=== PATIENT | male | born 1980 | race Hispanic/Latino ===

== ENCOUNTER 2017-12-27 09:56 | Inpatient (IN) | payer OTHER ==
[~2017-12-27] VITALS: Ht 188 cm; Wt 140.7 kg
[2017-12-27] MEDS ORDERED: ACETAMINOPHEN EXTRA STRENGTH 500 MG TABLET ONE (10:29)
[2017-12-27] MEDS ORDERED: SODIUM CHLORIDE 0.9% 1000ML 1,000 ML IV ONE ×3 (10:29→13:01)
[2017-12-27] MEDS ORDERED: ONDANSETRON HCL 4 MG/2 ML VIAL ONE (10:29)
[2017-12-27 10:33] LABS: BASOPHILS % (AUTO) 0.4 % (0.0-5.0); EOSINOPHILS % (AUTO) 0.3 % (0.0-8.0); HEMATOCRIT 32.1 % (42-54); LYMPHOCYTES % (AUTO) 5.5 % (21.0-51.0); MEAN CORPUSCULAR HEMOGLOBIN 25.6 pg (27.0-33.0); MEAN CORPUSCULAR HGB CONC 32.3 g/dL (32.0-36.0); MEAN CORPUSCULAR VOLUME 79.5 fL (79-99); MONOCYTES % (AUTO) 5.1 % (3.0-13.0); NEUTROPHILS % (AUTO) 88.7 % (40.0-77.0); PLATELET COUNT (AUTO) 289 K/uL (130-400); RED BLOOD CELL COUNT(AUTO) 4.04 MIL/uL (4.50-6.20); RED CELL DISTRIBUTION WIDTH 13.4 % (11.0-15.5); WHITE BLOOD COUNT (AUTO) 16.9 K/uL (4.8-10.8)
[2017-12-27 10:53] LABS: CREATININE 1.2 mg/dL (0.5-1.5); POTASSIUM 3.7 mmol/L (3.5-5.1)
[2017-12-27 10:54] LABS: ALBUMIN 3.1 g/dL (3.5-5.0); BILIRUBIN,TOTAL 1.1 mg/dL (0.2-1.0); TOTAL PROTEIN, SERUM 8.2 g/dL (6.0-8.3)
[2017-12-27 11:35] LABS: APPEARANCE,URINE CLEAR (CLEAR); BILIRUBIN,URINE NEGATIVE (NEGATIVE); COLOR,URINE YELLOW (YELLOW); GLUCOSE, URINE (UA) >=1000 mg/dL (NEGATIVE); KETONES,URINE 15 mg/dL (NEGATIVE); LEUKOCYTE ESTERASE ,URINE NEGATIVE (NEGATIVE); NITRATE,URINE NEGATIVE (NEGATIVE); OCCULT BLOOD,URINE MODERATE (NEGATIVE); PH,URINE 5.5 (5.0-8.0); PROTEIN,URINE 30 (NEGATIVE)
[2017-12-27 11:54] LABS: BACTERIA,URINE None Seen /HPF (None Seen); SQUAMOUS EPITHELIAL CELL,UR Rare /HPF (0-2); WBC,URINE None Seen /HPF (0-1)
[2017-12-27] MEDS ORDERED: IBUPROFEN 600 MG TABLET ONE (12:37)
[2017-12-27] MEDS ORDERED: ZOSYN 3.375GM+NS 50ML 50 ML IV ONE (13:01)
[2017-12-27] MEDS ORDERED: SODIUM CHLORIDE 0.9% 50 ML IV ONE (13:01)
[2017-12-27] MEDS ORDERED: INSULIN HUMULIN R 100 UNIT/ML 3ML ONE (13:02)
[2017-12-27] MEDS ORDERED: MORPHINE SULFATE 2 MG/ML 1ML SYG IV PRN (16:00)
[2017-12-27 18:30] VITALS: BP 135/73
[2017-12-27 20:20] VITALS: BP 162/89
[2017-12-27] MEDS: INSULIN HUMULIN R 100 UNIT/ML 3ML SQ SCH ×2 (21:00→22:41)
[2017-12-27] MEDS: ZOSYN 3.375GM+NS 50ML 50 ML IV SCH (22:14)
[2017-12-27] MEDS: FAMOTIDINE/PF 20 MG/2 ML VIAL IV SCH (22:14)
[2017-12-27] MEDS: APIXABAN 5 MG TABLET PO SCH (22:14)
[2017-12-27] MEDS: SODIUM CHLORIDE 0.9% 1000ML 1,000 ML IV SCH ×2 (22:15→23:49)
[2017-12-27 23:16] VITALS: BP 160/85
[2017-12-27] MEDS: ACETAMINOPHEN 325 MG TAB PO PRN (23:35)
[2017-12-27] MEDS: ONDANSETRON HCL 4 MG/2 ML VIAL IV PRN (23:35)
[2017-12-28] MEDS: ACETAMINOPHEN 325 MG TAB PO PRN ×2 (04:07→15:36)
[2017-12-28 04:12] VITALS: BP 171/97
[2017-12-28] MEDS: ZOSYN 3.375GM+NS 50ML 50 ML IV SCH ×3 (04:33→22:02)
[2017-12-28 04:58] VITALS: BP 143/83
[2017-12-28] MEDS: INSULIN HUMULIN R 100 UNIT/ML 3ML SQ SCH ×4 (06:18→22:14)
[2017-12-28 07:00] VITALS: BP 136/77
[2017-12-28 07:43] LABS: CREATININE 1.1 mg/dL (0.5-1.5); POTASSIUM 3.8 mmol/L (3.5-5.1)
[2017-12-28 07:48] LABS: HEMATOCRIT 26.7 % (42-54); MEAN CORPUSCULAR HEMOGLOBIN 26.1 pg (27.0-33.0); MEAN CORPUSCULAR HGB CONC 32.8 g/dL (32.0-36.0); MEAN CORPUSCULAR VOLUME 79.8 fL (79-99); PLATELET COUNT (AUTO) 268 K/uL (130-400); RED BLOOD CELL COUNT(AUTO) 3.35 MIL/uL (4.50-6.20); RED CELL DISTRIBUTION WIDTH 13.3 % (11.0-15.5)
[2017-12-28] MEDS ORDERED: SODIUM CHLORIDE 0.9% 1000ML 1,000 ML IV SCH (08:48)
[2017-12-28] MEDS ORDERED: ENOXAPARIN SODIUM 40 MG/0.4 ML SYRINGE SQ SCH (09:00)
[2017-12-28] MEDS: FAMOTIDINE/PF 20 MG/2 ML VIAL IV SCH ×2 (09:05→22:02)
[2017-12-28] MEDS: APIXABAN 5 MG TABLET PO SCH ×2 (09:05→22:07)
[2017-12-28] MEDS: SODIUM CHLORIDE 0.9% 1000ML 1,000 ML IV SCH ×2 (09:05→17:30)
[2017-12-28] MEDS: INSULIN GLARGINE 100 UNITS/ML 10 ML VIAL SQ SCH ×2 (09:42→22:15)
[2017-12-28 11:00] VITALS: BP 171/100
[2017-12-28] MEDS: ONDANSETRON HCL 4 MG/2 ML VIAL IV PRN (11:13)
[2017-12-28] MEDS: HYDRALAZINE HCL 20 MG/ML VIAL IV PRN (11:13)
[2017-12-28] MEDS ORDERED: ATOR40TA69 PO (11:24)
[2017-12-28] MEDS ORDERED: GLIM1TAB2 PO (11:24)
[2017-12-28] MEDS ORDERED: SITA100T12 PO (11:24)
[2017-12-28] MEDS ORDERED: LISI-613 PO (11:24)
[2017-12-28] MEDS ORDERED: METF-445 PO (11:24)
[2017-12-28] MEDS ORDERED: VANCOMYCIN PROTOCOL PER PHARMACY IV SCH (13:45)
[2017-12-28] MEDS ORDERED: COMPOUND IV REFRIGERATED 1 EACH IVSOLN MISC PRN (14:00)
[2017-12-28] MEDS: VANCOMYCIN 2 GM in SODIUM CHLORIDE 0.9% 500ML 500 ML IV SCH (14:37)
[2017-12-28 15:35] VITALS: BP 149/81
[2017-12-28 19:25] VITALS: BP 121/83
[2017-12-29] VITALS (7 sets, daily range): BP systolic 134–169; BP diastolic 78–95
[2017-12-29] MEDS: VANCOMYCIN 2 GM in SODIUM CHLORIDE 0.9% 500ML 500 ML IV SCH ×2 (02:55→15:33)
[2017-12-29] MEDS: SODIUM CHLORIDE 0.9% 1000ML 1,000 ML IV SCH ×4 (03:02→23:55)
[2017-12-29 04:49] LABS: HEMATOCRIT 24.7 % (42-54); MEAN CORPUSCULAR HEMOGLOBIN 26.1 pg (27.0-33.0); MEAN CORPUSCULAR HGB CONC 32.8 g/dL (32.0-36.0); MEAN CORPUSCULAR VOLUME 79.5 fL (79-99); PLATELET COUNT (AUTO) 245 K/uL (130-400); RED BLOOD CELL COUNT(AUTO) 3.11 MIL/uL (4.50-6.20); RED CELL DISTRIBUTION WIDTH 13.3 % (11.0-15.5)
[2017-12-29 04:56] LABS: POTASSIUM 3.4 mmol/L (3.5-5.1)
[2017-12-29] MEDS: ZOSYN 3.375GM+NS 50ML 50 ML IV SCH ×3 (05:38→21:40)
[2017-12-29] MEDS: INSULIN GLARGINE 100 UNITS/ML 10 ML VIAL SQ SCH ×2 (08:07→21:52)
[2017-12-29] MEDS: INSULIN HUMULIN R 100 UNIT/ML 3ML SQ SCH ×4 (08:08→21:54)
[2017-12-29] MEDS: FAMOTIDINE/PF 20 MG/2 ML VIAL IV SCH ×2 (08:10→21:43)
[2017-12-29] MEDS: APIXABAN 5 MG TABLET PO SCH ×2 (08:12→21:45)
[2017-12-29] MEDS ORDERED: HONEY 1 APPL/ML TUBE TP SCH (09:00)
[2017-12-29] MEDS ORDERED: LACTULOSE 20 GM/30 ML UDCUP PO PRN (09:15)
[2017-12-29] MEDS: ACETAMINOPHEN 325 MG TAB PO PRN (16:21)
[2017-12-29] MEDS: DOCUSATE SODIUM 100 MG CAP PO SCH (21:45)
[2017-12-29] MEDS: HYDRALAZINE HCL 20 MG/ML VIAL IV PRN (23:59)
[2017-12-30] MEDS: ACETAMINOPHEN 325 MG TAB PO PRN
[2017-12-30] MEDS: VANCOMYCIN 2 GM in SODIUM CHLORIDE 0.9% 500ML 500 ML IV SCH ×3 (02:25→21:14)
[2017-12-30 03:28] VITALS: BP 131/76
[2017-12-30] MEDS: HONEY 1 APPL/ML TUBE TP SCH (04:00)
[2017-12-30] MEDS: ZOSYN 3.375GM+NS 50ML 50 ML IV SCH ×3 (05:14→21:14)
[2017-12-30 05:53] LABS: BASOPHILS % (AUTO) 0.3 % (0.0-5.0); EOSINOPHILS % (AUTO) 0.7 % (0.0-8.0); HEMATOCRIT 24.7 % (42-54); LYMPHOCYTES % (AUTO) 13.1 % (21.0-51.0); MEAN CORPUSCULAR HEMOGLOBIN 26.4 pg (27.0-33.0); MEAN CORPUSCULAR HGB CONC 33.5 g/dL (32.0-36.0); MEAN CORPUSCULAR VOLUME 78.9 fL (79-99); MONOCYTES % (AUTO) 7.5 % (3.0-13.0); NEUTROPHILS % (AUTO) 78.4 % (40.0-77.0); PLATELET COUNT (AUTO) 276 K/uL (130-400); RED BLOOD CELL COUNT(AUTO) 3.13 MIL/uL (4.50-6.20); RED CELL DISTRIBUTION WIDTH 13.4 % (11.0-15.5); WHITE BLOOD COUNT (AUTO) 12.1 K/uL (4.8-10.8)
[2017-12-30 06:09] LABS: CREATININE 0.9 mg/dL (0.5-1.5); POTASSIUM 3.2 mmol/L (3.5-5.1)
[2017-12-30] MEDS: INSULIN HUMULIN R 100 UNIT/ML 3ML SQ SCH ×4 (06:33→21:30)
[2017-12-30] MEDS: INSULIN GLARGINE 100 UNITS/ML 10 ML VIAL SQ SCH ×2 (06:34→21:31)
[2017-12-30] MEDS: APIXABAN 5 MG TABLET PO SCH ×2 (11:25→21:17)
[2017-12-30] MEDS: LISINOPRIL 20 MG TABLET PO SCH (11:25)
[2017-12-30] MEDS: LINAGLIPTIN 5 MG TABLET PO SCH (11:25)
[2017-12-30] MEDS: DOCUSATE SODIUM 100 MG CAP PO SCH ×2 (11:25→21:18)
[2017-12-30] MEDS: METFORMIN HCL 850 MG TABLET PO SCH ×3 (11:25→21:17)
[2017-12-30] MEDS: FAMOTIDINE/PF 20 MG/2 ML VIAL IV SCH ×2 (11:26→21:18)
[2017-12-30] MEDS: GLIMEPIRIDE 2 MG TABLET PO SCH (11:26)
[2017-12-30] MEDS: SODIUM CHLORIDE 0.9% 1000ML 1,000 ML IV SCH (11:27)
[2017-12-30] MEDS ORDERED: LACTULOSE 20 GM/30 ML UDCUP PO SCH (12:00)
[2017-12-30 12:33] VITALS: BP 149/94
[2017-12-30 19:17] VITALS: BP 173/92
[2017-12-30 19:50] VITALS: BP 155/91
[2017-12-30] MEDS: ATORVASTATIN CALCIUM 40 MG TABLET PO SCH (21:18)
[2017-12-30 23:34] VITALS: BP 143/83
[2017-12-31 03:48] VITALS: BP 137/79
[2017-12-31 05:30] LABS: HEMATOCRIT 23.4 % (42-54); MEAN CORPUSCULAR HEMOGLOBIN 25.6 pg (27.0-33.0); MEAN CORPUSCULAR HGB CONC 32.7 g/dL (32.0-36.0); MEAN CORPUSCULAR VOLUME 78.2 fL (79-99); PLATELET COUNT (AUTO) 284 K/uL (130-400); RED CELL DISTRIBUTION WIDTH 13.2 % (11.0-15.5); WHITE BLOOD COUNT (AUTO) 11.3 K/uL (4.8-10.8)
[2017-12-31 05:39] LABS: CREATININE 0.9 mg/dL (0.5-1.5); POTASSIUM 3.1 mmol/L (3.5-5.1)
[2017-12-31] MEDS: ZOSYN 3.375GM+NS 50ML 50 ML IV SCH ×3 (05:47→21:34)
[2017-12-31] MEDS: SODIUM CHLORIDE 0.9% 1000ML 1,000 ML IV SCH (05:47)
[2017-12-31 07:00] VITALS: BP 144/71
[2017-12-31] MEDS: INSULIN HUMULIN R 100 UNIT/ML 3ML SQ SCH ×4 (07:02→21:51)
[2017-12-31] MEDS: INSULIN GLARGINE 100 UNITS/ML 10 ML VIAL SQ SCH ×2 (07:02→21:49)
[2017-12-31] MEDS: VANCOMYCIN 2 GM in SODIUM CHLORIDE 0.9% 500ML 500 ML IV SCH ×2 (08:42→21:35)
[2017-12-31] MEDS: FAMOTIDINE/PF 20 MG/2 ML VIAL IV SCH ×2 (08:42→21:41)
[2017-12-31] MEDS: HONEY 1 APPL/ML TUBE TP SCH (08:43)
[2017-12-31] MEDS: METFORMIN HCL 850 MG TABLET PO SCH ×3 (08:44→21:39)
[2017-12-31] MEDS: APIXABAN 5 MG TABLET PO SCH ×2 (08:44→21:39)
[2017-12-31] MEDS: LISINOPRIL 20 MG TABLET PO SCH (08:44)
[2017-12-31] MEDS: LINAGLIPTIN 5 MG TABLET PO SCH (08:44)
[2017-12-31] MEDS: DOCUSATE SODIUM 100 MG CAP PO SCH ×3 (08:44→21:00)
[2017-12-31] MEDS: GLIMEPIRIDE 2 MG TABLET PO SCH (08:45)
[2017-12-31] MEDS ORDERED: POTASSIUM CHLORIDE 20MEQ/100ML 100 ML IV PRN (09:45)
[2017-12-31] MEDS ORDERED: LIDOCAINE HCL-MPF 1% 2ML VIAL IVP PRN (09:45)
[2017-12-31] MEDS ORDERED: POTASSIUM CHLORIDE 10% ELIXIR 20 MEQ/15 ML UDCUP PO PRN (09:45)
[2017-12-31 11:00] VITALS: BP 148/85
[2017-12-31] MEDS: POTASSIUM CHLORIDE 20 MEQ ERTAB PO PRN ×4 (12:46→23:51)
[2017-12-31 16:09] VITALS: BP 156/92
[2017-12-31 19:25] VITALS: BP 175/97
[2017-12-31] MEDS: ATORVASTATIN CALCIUM 40 MG TABLET PO SCH (21:39)
[2017-12-31 23:51] VITALS: BP 150/88
[2018-01-01 03:28] VITALS: BP 144/87
[2018-01-01] MEDS: ZOSYN 3.375GM+NS 50ML 50 ML IV SCH ×3 (05:09→20:58)
[2018-01-01 06:04] LABS: MEAN CORPUSCULAR HEMOGLOBIN 26.8 pg (27.0-33.0); MEAN CORPUSCULAR HGB CONC 33.9 g/dL (32.0-36.0); PLATELET COUNT (AUTO) 357 K/uL (130-400); RED BLOOD CELL COUNT(AUTO) 3.03 MIL/uL (4.50-6.20); RED CELL DISTRIBUTION WIDTH 13.6 % (11.0-15.5); WHITE BLOOD COUNT (AUTO) 9.8 K/uL (4.8-10.8)
[2018-01-01 06:11] LABS: CREATININE 0.9 mg/dL (0.5-1.5); POTASSIUM 3.2 mmol/L (3.5-5.1)
[2018-01-01] MEDS: INSULIN HUMULIN R 100 UNIT/ML 3ML SQ SCH ×4 (06:31→20:59)
[2018-01-01] MEDS: INSULIN GLARGINE 100 UNITS/ML 10 ML VIAL SQ SCH ×2 (06:32→21:14)
[2018-01-01 07:00] VITALS: BP 169/101
[2018-01-01] MEDS: DOCUSATE SODIUM 100 MG CAP PO SCH ×2 (09:00→21:00)
[2018-01-01] MEDS: VANCOMYCIN 1.5 GM in SODIUM CHLORIDE 0.9% 250 ML IV SCH ×2 (10:43→18:05)
[2018-01-01] MEDS: METFORMIN HCL 850 MG TABLET PO SCH ×3 (10:43→20:59)
[2018-01-01] MEDS: GLIMEPIRIDE 2 MG TABLET PO SCH (10:44)
[2018-01-01] MEDS: LINAGLIPTIN 5 MG TABLET PO SCH (10:44)
[2018-01-01] MEDS: LISINOPRIL 20 MG TABLET PO SCH (10:44)
[2018-01-01] MEDS: APIXABAN 5 MG TABLET PO SCH ×2 (10:44→20:59)
[2018-01-01] MEDS: FAMOTIDINE/PF 20 MG/2 ML VIAL IV SCH ×2 (10:45→20:58)
[2018-01-01] MEDS: HONEY 1 APPL/ML TUBE TP SCH (10:51)
[2018-01-01 11:00] VITALS: BP 187/103
[2018-01-01] MEDS: POTASSIUM CHLORIDE 20 MEQ ERTAB PO PRN ×4 (13:15→23:15)
[2018-01-01] MEDS: HYDRALAZINE HCL 20 MG/ML VIAL IV PRN (15:47)
[2018-01-01 16:00] VITALS: BP 180/100
[2018-01-01 20:00] VITALS: BP 173/92
[2018-01-01] MEDS: ATORVASTATIN CALCIUM 40 MG TABLET PO SCH (20:59)
[2018-01-02] VITALS (18 sets, daily range): BP systolic 129–179; BP diastolic 74–100
[2018-01-02] MEDS: VANCOMYCIN 1.5 GM in SODIUM CHLORIDE 0.9% 250 ML IV SCH ×3 (02:03→21:33)
[2018-01-02] MEDS: HYDRALAZINE HCL 20 MG/ML VIAL IV PRN ×2 (05:04→16:59)
[2018-01-02] MEDS: ZOSYN 3.375GM+NS 50ML 50 ML IV SCH ×3 (05:05→21:28)
[2018-01-02 05:39] LABS: HEMATOCRIT 25.1 % (42-54); MEAN CORPUSCULAR HEMOGLOBIN 25.7 pg (27.0-33.0); MEAN CORPUSCULAR HGB CONC 32.5 g/dL (32.0-36.0); NUCLEATED RED BLOOD CELLS 0.1 % (0.0-0.19); PLATELET COUNT (AUTO) 366 K/uL (130-400); RED BLOOD CELL COUNT(AUTO) 3.17 MIL/uL (4.50-6.20); RED CELL DISTRIBUTION WIDTH 13.8 % (11.0-15.5); WHITE BLOOD COUNT (AUTO) 11.2 K/uL (4.8-10.8)
[2018-01-02 05:48] LABS: CREATININE 0.8 mg/dL (0.5-1.5); POTASSIUM 3.7 mmol/L (3.5-5.1)
[2018-01-02] MEDS: INSULIN HUMULIN R 100 UNIT/ML 3ML SQ SCH ×4 (06:17→21:00)
[2018-01-02] MEDS: INSULIN GLARGINE 100 UNITS/ML 10 ML VIAL SQ SCH ×2 (06:50→21:32)
[2018-01-02] MEDS: DOCUSATE SODIUM 100 MG CAP PO SCH ×2 (09:00→21:00)
[2018-01-02] MEDS: FAMOTIDINE/PF 20 MG/2 ML VIAL IV SCH ×2 (09:36→21:29)
[2018-01-02] MEDS: METFORMIN HCL 850 MG TABLET PO SCH ×3 (09:37→21:29)
[2018-01-02] MEDS: LISINOPRIL 20 MG TABLET PO SCH (09:37)
[2018-01-02] MEDS: LINAGLIPTIN 5 MG TABLET PO SCH (09:37)
[2018-01-02] MEDS: GLIMEPIRIDE 2 MG TABLET PO SCH (09:37)
[2018-01-02] MEDS: APIXABAN 5 MG TABLET PO SCH ×2 (09:38→21:52)
[2018-01-02] MEDS: HONEY 1 APPL/ML TUBE TP SCH (09:46)
[2018-01-02] MEDS ORDERED: DEXAMETHASONE SOD PHOSPHATE 10MG/ML 1ML VIAL ONE (18:22)
[2018-01-02] MEDS ORDERED: LIDOCAINE PF 2% 5ML ABBOJECT ONE (18:22)
[2018-01-02] MEDS ORDERED: FENTANYL CITRATE PF 50 MCG/1 ML 2ML VIAL ONE ×2 (18:23→18:53)
[2018-01-02] MEDS ORDERED: PROPOFOL 10 MG/ML 20ML VIAL IV ONE (18:23)
[2018-01-02] MEDS ORDERED: MIDAZOLAM HCL 1 MG/ML 2ML VIAL ONE ×2 (18:23→18:53)
[2018-01-02] MEDS ORDERED: ONDANSETRON HCL 4 MG/2 ML VIAL ONE (18:23)
[2018-01-02] MEDS ORDERED: LIDOCAINE HCL 1% 20 ML VIAL ONE (18:28)
[2018-01-02] MEDS ORDERED: BUPIVACAINE/PF 0.5% 30ML VIAL ONE (18:28)
[2018-01-02] MEDS: ATORVASTATIN CALCIUM 40 MG TABLET PO SCH (21:30)
[2018-01-03] VITALS (9 sets, daily range): BP systolic 120–161; BP diastolic 76–98
[2018-01-03] MEDS: VANCOMYCIN 1.5 GM in SODIUM CHLORIDE 0.9% 250 ML IV SCH ×3 (05:00→22:16)
[2018-01-03] MEDS ORDERED: VANCOMYCIN 1.5 GM in SODIUM CHLORIDE 0.9% 250 ML IV SCH ×2 (05:00→06:30)
[2018-01-03] MEDS: ZOSYN 3.375GM+NS 50ML 50 ML IV SCH ×3 (05:03→22:06)
[2018-01-03 05:56] LABS: BASOPHILS % (AUTO) 0.8 % (0.0-5.0); EOSINOPHILS % (AUTO) 1.2 % (0.0-8.0); HEMATOCRIT 25.6 % (42-54); LYMPHOCYTES % (AUTO) 12.5 % (21.0-51.0); MEAN CORPUSCULAR HGB CONC 33.2 g/dL (32.0-36.0); MEAN CORPUSCULAR VOLUME 78.3 fL (79-99); MONOCYTES % (AUTO) 7.6 % (3.0-13.0); NEUTROPHILS % (AUTO) 77.9 % (40.0-77.0); PLATELET COUNT (AUTO) 439 K/uL (130-400); RED BLOOD CELL COUNT(AUTO) 3.27 MIL/uL (4.50-6.20); RED CELL DISTRIBUTION WIDTH 13.6 % (11.0-15.5); WHITE BLOOD COUNT (AUTO) 11.9 K/uL (4.8-10.8)
[2018-01-03 06:00] LABS: CREATININE 0.8 mg/dL (0.5-1.5); POTASSIUM 3.4 mmol/L (3.5-5.1)
[2018-01-03] MEDS ORDERED: VANCOMYCIN PROTOCOL PER PHARMACY IV SCH (06:30)
[2018-01-03] MEDS: INSULIN GLARGINE 100 UNITS/ML 10 ML VIAL SQ SCH ×2 (06:40→22:20)
[2018-01-03] MEDS: INSULIN HUMULIN R 100 UNIT/ML 3ML SQ SCH ×4 (07:30→21:00)
[2018-01-03] MEDS: DOCUSATE SODIUM 100 MG CAP PO SCH ×2 (09:00→21:00)
[2018-01-03] MEDS: FAMOTIDINE/PF 20 MG/2 ML VIAL IV SCH ×2 (10:57→22:05)
[2018-01-03] MEDS: LISINOPRIL 20 MG TABLET PO SCH (10:57)
[2018-01-03] MEDS: METFORMIN HCL 850 MG TABLET PO SCH ×3 (10:57→22:05)
[2018-01-03] MEDS: LINAGLIPTIN 5 MG TABLET PO SCH (10:57)
[2018-01-03] MEDS: POTASSIUM CHLORIDE 20 MEQ ERTAB PO PRN ×2 (10:58→14:25)
[2018-01-03] MEDS: GLIMEPIRIDE 2 MG TABLET PO SCH (10:58)
[2018-01-03] MEDS: APIXABAN 5 MG TABLET PO SCH ×2 (13:09→22:05)
[2018-01-03] MEDS: ATORVASTATIN CALCIUM 40 MG TABLET PO SCH (22:05)
[2018-01-04] VITALS: BP 139/77
[2018-01-04 04:00] VITALS: BP 131/72
[2018-01-04 05:28] LABS: HEMATOCRIT 24.1 % (42-54); MEAN CORPUSCULAR HEMOGLOBIN 25.9 pg (27.0-33.0); MEAN CORPUSCULAR HGB CONC 32.9 g/dL (32.0-36.0); MEAN CORPUSCULAR VOLUME 78.5 fL (79-99); PLATELET COUNT (AUTO) 391 K/uL (130-400); RED BLOOD CELL COUNT(AUTO) 3.07 MIL/uL (4.50-6.20); RED CELL DISTRIBUTION WIDTH 13.8 % (11.0-15.5); WHITE BLOOD COUNT (AUTO) 10.8 K/uL (4.8-10.8)
[2018-01-04] MEDS: VANCOMYCIN 1.5 GM in SODIUM CHLORIDE 0.9% 250 ML IV SCH ×3 (05:35→23:08)
[2018-01-04] MEDS: ZOSYN 3.375GM+NS 50ML 50 ML IV SCH ×3 (05:35→23:08)
[2018-01-04 05:38] LABS: CREATININE 0.9 mg/dL (0.5-1.5); POTASSIUM 3.1 mmol/L (3.5-5.1)
[2018-01-04] MEDS: INSULIN HUMULIN R 100 UNIT/ML 3ML SQ SCH ×4 (06:45→21:00)
[2018-01-04] MEDS: INSULIN GLARGINE 100 UNITS/ML 10 ML VIAL SQ SCH ×2 (06:48→21:00)
[2018-01-04 08:00] VITALS: BP 126/72
[2018-01-04] MEDS: DOCUSATE SODIUM 100 MG CAP PO SCH ×2 (09:00→21:00)
[2018-01-04] MEDS: LINAGLIPTIN 5 MG TABLET PO SCH (09:48)
[2018-01-04] MEDS: METFORMIN HCL 850 MG TABLET PO SCH ×3 (09:49→18:26)
[2018-01-04] MEDS: GLIMEPIRIDE 2 MG TABLET PO SCH (09:49)
[2018-01-04] MEDS: FAMOTIDINE/PF 20 MG/2 ML VIAL IV SCH ×2 (09:49→23:07)
[2018-01-04] MEDS: LISINOPRIL 20 MG TABLET PO SCH (09:49)
[2018-01-04] MEDS: APIXABAN 5 MG TABLET PO SCH ×2 (09:50→23:08)
[2018-01-04] MEDS: POTASSIUM CHLORIDE 20 MEQ ERTAB PO PRN ×3 (09:59→16:07)
[2018-01-04 11:00] VITALS: BP 140/79
[2018-01-04] MEDS: HYDROMORPHONE 1 MG/1 ML AMP IVP PRN (13:23)
[2018-01-04 16:00] VITALS: BP 146/93
[2018-01-04 20:00] VITALS: BP 152/89
[2018-01-04] MEDS: ATORVASTATIN CALCIUM 40 MG TABLET PO SCH (23:09)
[2018-01-05] VITALS: BP 123/70
[2018-01-05 04:00] VITALS: BP 160/97
[2018-01-05 05:13] LABS: HEMATOCRIT 22.5 % (42-54); MEAN CORPUSCULAR HEMOGLOBIN 26.7 pg (27.0-33.0); MEAN CORPUSCULAR HGB CONC 33.8 g/dL (32.0-36.0); MEAN CORPUSCULAR VOLUME 78.8 fL (79-99); NUCLEATED RED BLOOD CELLS 0.1 % (0.0-0.19); PLATELET COUNT (AUTO) 398 K/uL (130-400); RED BLOOD CELL COUNT(AUTO) 2.85 MIL/uL (4.50-6.20); RED CELL DISTRIBUTION WIDTH 13.7 % (11.0-15.5); WHITE BLOOD COUNT (AUTO) 9.1 K/uL (4.8-10.8)
[2018-01-05 05:23] LABS: CREATININE 0.9 mg/dL (0.5-1.5); POTASSIUM 3.2 mmol/L (3.5-5.1)
[2018-01-05] MEDS: ZOSYN 3.375GM+NS 50ML 50 ML IV SCH ×3 (05:31→23:13)
[2018-01-05] MEDS: INSULIN GLARGINE 100 UNITS/ML 10 ML VIAL SQ SCH ×2 (05:49→21:00)
[2018-01-05] MEDS: INSULIN HUMULIN R 100 UNIT/ML 3ML SQ SCH ×4 (05:49→21:00)
[2018-01-05] MEDS: VANCOMYCIN 1.5 GM in SODIUM CHLORIDE 0.9% 250 ML IV SCH (06:54)
[2018-01-05] MEDS: DOCUSATE SODIUM 100 MG CAP PO SCH ×2 (09:00→21:00)
[2018-01-05] MEDS: METFORMIN HCL 850 MG TABLET PO SCH ×3 (09:18→17:16)
[2018-01-05] MEDS: LISINOPRIL 20 MG TABLET PO SCH (09:19)
[2018-01-05] MEDS: GLIMEPIRIDE 2 MG TABLET PO SCH (09:19)
[2018-01-05] MEDS: FAMOTIDINE/PF 20 MG/2 ML VIAL IV SCH ×2 (09:19→23:12)
[2018-01-05] MEDS: LINAGLIPTIN 5 MG TABLET PO SCH (09:20)
[2018-01-05] MEDS: HYDROMORPHONE 1 MG/1 ML AMP IVP PRN ×2 (09:31→23:13)
[2018-01-05] MEDS: APIXABAN 5 MG TABLET PO SCH ×2 (10:36→23:13)
[2018-01-05 11:54] VITALS: BP 140/84
[2018-01-05] MEDS: POTASSIUM CHLORIDE 20 MEQ ERTAB PO PRN ×3 (14:23→19:01)
[2018-01-05] MEDS: VANCOMYCIN 1.25 GM in SODIUM CHLORIDE 0.9% 250 ML IV SCH ×2 (14:26→23:14)
[2018-01-05 16:00] VITALS: BP 151/91
[2018-01-05 20:00] VITALS: BP 178/99
[2018-01-05] MEDS: ATORVASTATIN CALCIUM 40 MG TABLET PO SCH (23:13)
[2018-01-06] VITALS: BP 158/101
[2018-01-06 04:00] VITALS: BP 137/89
[2018-01-06 05:03] LABS: MEAN CORPUSCULAR HEMOGLOBIN 26.5 pg (27.0-33.0); MEAN CORPUSCULAR HGB CONC 33.8 g/dL (32.0-36.0); MEAN CORPUSCULAR VOLUME 78.3 fL (79-99); NUCLEATED RED BLOOD CELLS 0.1 % (0.0-0.19); PLATELET COUNT (AUTO) 394 K/uL (130-400); RED BLOOD CELL COUNT(AUTO) 2.81 MIL/uL (4.50-6.20); WHITE BLOOD COUNT (AUTO) 9.4 K/uL (4.8-10.8)
[2018-01-06 05:14] LABS: CREATININE 0.8 mg/dL (0.5-1.5); POTASSIUM 3.3 mmol/L (3.5-5.1)
[2018-01-06] MEDS: ZOSYN 3.375GM+NS 50ML 50 ML IV SCH ×3 (05:23→21:58)
[2018-01-06] MEDS: VANCOMYCIN 1.25 GM in SODIUM CHLORIDE 0.9% 250 ML IV SCH ×3 (05:24→22:39)
[2018-01-06] MEDS: INSULIN GLARGINE 100 UNITS/ML 10 ML VIAL SQ SCH ×2 (05:49→21:00)
[2018-01-06] MEDS: INSULIN HUMULIN R 100 UNIT/ML 3ML SQ SCH ×4 (05:49→21:00)
[2018-01-06 07:30] VITALS: BP 139/98
[2018-01-06] MEDS: METFORMIN HCL 850 MG TABLET PO SCH ×3 (08:00→17:39)
[2018-01-06 11:00] VITALS: BP 150/82
[2018-01-06] MEDS: HYDROMORPHONE 1 MG/1 ML AMP IVP PRN (12:45)
[2018-01-06] MEDS: LISINOPRIL 20 MG TABLET PO SCH (12:46)
[2018-01-06] MEDS: DOCUSATE SODIUM 100 MG CAP PO SCH ×2 (12:46→21:00)
[2018-01-06] MEDS: LINAGLIPTIN 5 MG TABLET PO SCH (12:46)
[2018-01-06] MEDS: GLIMEPIRIDE 2 MG TABLET PO SCH (12:47)
[2018-01-06] MEDS: FAMOTIDINE/PF 20 MG/2 ML VIAL IV SCH ×2 (12:48→21:58)
[2018-01-06] MEDS: APIXABAN 5 MG TABLET PO SCH ×2 (13:32→21:57)
[2018-01-06 16:00] VITALS: BP 167/90
[2018-01-06 20:00] VITALS: BP 159/92
[2018-01-06] MEDS: ATORVASTATIN CALCIUM 40 MG TABLET PO SCH (21:57)
[2018-01-07] VITALS (8 sets, daily range): BP systolic 133–178; BP diastolic 70–98
[2018-01-07] MEDS: ZOSYN 3.375GM+NS 50ML 50 ML IV SCH ×3 (05:14→21:49)
[2018-01-07] MEDS: VANCOMYCIN 1.25 GM in SODIUM CHLORIDE 0.9% 250 ML IV SCH ×3 (05:15→22:03)
[2018-01-07] MEDS: HYDROMORPHONE 1 MG/1 ML AMP IVP PRN ×4 (05:17→21:50)
[2018-01-07 05:20] LABS: BASOPHILS % (AUTO) 0.4 % (0.0-5.0); HEMATOCRIT 25.4 % (42-54); LYMPHOCYTES % (AUTO) 21.8 % (21.0-51.0); MEAN CORPUSCULAR HEMOGLOBIN 26.1 pg (27.0-33.0); MEAN CORPUSCULAR HGB CONC 33.1 g/dL (32.0-36.0); MEAN CORPUSCULAR VOLUME 78.9 fL (79-99); MONOCYTES % (AUTO) 7.3 % (3.0-13.0); NEUTROPHILS % (AUTO) 68.5 % (40.0-77.0); PLATELET COUNT (AUTO) 481 K/uL (130-400); RED BLOOD CELL COUNT(AUTO) 3.22 MIL/uL (4.50-6.20); WHITE BLOOD COUNT (AUTO) 9.7 K/uL (4.8-10.8)
[2018-01-07 05:34] LABS: CREATININE 0.9 mg/dL (0.5-1.5); POTASSIUM 3.4 mmol/L (3.5-5.1)
[2018-01-07] MEDS: INSULIN HUMULIN R 100 UNIT/ML 3ML SQ SCH ×4 (06:09→21:00)
[2018-01-07] MEDS: INSULIN GLARGINE 100 UNITS/ML 10 ML VIAL SQ SCH ×2 (06:09→21:59)
[2018-01-07] MEDS: DOCUSATE SODIUM 100 MG CAP PO SCH ×2 (09:00→21:49)
[2018-01-07] MEDS: LINAGLIPTIN 5 MG TABLET PO SCH (10:13)
[2018-01-07] MEDS: LISINOPRIL 20 MG TABLET PO SCH (10:13)
[2018-01-07] MEDS: FAMOTIDINE/PF 20 MG/2 ML VIAL IV SCH ×2 (10:13→21:49)
[2018-01-07] MEDS: APIXABAN 5 MG TABLET PO SCH ×2 (10:13→21:49)
[2018-01-07] MEDS: GLIMEPIRIDE 2 MG TABLET PO SCH (10:14)
[2018-01-07] MEDS: METFORMIN HCL 850 MG TABLET PO SCH ×3 (10:18→16:38)
[2018-01-07] MEDS: POTASSIUM CHLORIDE 20 MEQ ERTAB PO PRN ×2 (14:51→17:11)
[2018-01-07] MEDS: ATORVASTATIN CALCIUM 40 MG TABLET PO SCH (21:49)
[2018-01-08] VITALS (7 sets, daily range): BP systolic 140–172; BP diastolic 80–98
[2018-01-08 05:07] LABS: BASOPHILS % (AUTO) 0.9 % (0.0-5.0); HEMATOCRIT 24.5 % (42-54); LYMPHOCYTES % (AUTO) 20.2 % (21.0-51.0); MEAN CORPUSCULAR HEMOGLOBIN 25.7 pg (27.0-33.0); MEAN CORPUSCULAR HGB CONC 32.9 g/dL (32.0-36.0); MEAN CORPUSCULAR VOLUME 78.1 fL (79-99); MONOCYTES % (AUTO) 6.7 % (3.0-13.0); NEUTROPHILS % (AUTO) 70.2 % (40.0-77.0); PLATELET COUNT (AUTO) 427 K/uL (130-400); RED BLOOD CELL COUNT(AUTO) 3.13 MIL/uL (4.50-6.20); RED CELL DISTRIBUTION WIDTH 13.9 % (11.0-15.5); WHITE BLOOD COUNT (AUTO) 9.5 K/uL (4.8-10.8)
[2018-01-08 05:16] LABS: CREATININE 0.8 mg/dL (0.5-1.5); POTASSIUM 3.6 mmol/L (3.5-5.1)
[2018-01-08] MEDS: VANCOMYCIN 1.25 GM in SODIUM CHLORIDE 0.9% 250 ML IV SCH ×2 (05:32→13:20)
[2018-01-08] MEDS: ZOSYN 3.375GM+NS 50ML 50 ML IV SCH ×2 (05:32→13:20)
[2018-01-08] MEDS ORDERED: HONEY 1 APPL/ML TUBE TP PRN (05:45)
[2018-01-08] MEDS: INSULIN GLARGINE 100 UNITS/ML 10 ML VIAL SQ SCH (06:35)
[2018-01-08] MEDS: INSULIN HUMULIN R 100 UNIT/ML 3ML SQ SCH ×3 (06:43→16:30)
[2018-01-08] MEDS: DOCUSATE SODIUM 100 MG CAP PO SCH (09:00)
[2018-01-08] MEDS ORDERED: HONEY 1 APPL/ML TUBE TP SCH (09:00)
[2018-01-08] MEDS: FAMOTIDINE/PF 20 MG/2 ML VIAL IV SCH (09:44)
[2018-01-08] MEDS: LISINOPRIL 20 MG TABLET PO SCH (09:45)
[2018-01-08] MEDS: LINAGLIPTIN 5 MG TABLET PO SCH (09:45)
[2018-01-08] MEDS: APIXABAN 5 MG TABLET PO SCH (09:45)
[2018-01-08] MEDS: GLIMEPIRIDE 2 MG TABLET PO SCH (09:46)
[2018-01-08] MEDS: METFORMIN HCL 850 MG TABLET PO SCH ×3 (09:46→17:54)
[2018-01-08] MEDS: HYDROMORPHONE 1 MG/1 ML AMP IVP PRN (14:30)
[2018-01-08] MEDS ORDERED: HONE44PA TP ×2 (14:56→14:58)
== END 2018-01-08 21:15 | disposition home or self-care (01) | DRG 854 ==
LOC: EDH 09:56 → EDHIP 09:57 → 3CH 18:41 → 3DH 12-28 17:49
PROVIDERS: ADMIT Hospitalist; ATTEND Hospitalist
PROC: 0LBN0ZZ Excision of Right Lower Leg Tendon, Open Approach (ICD-10-PCS; 2018-01-02)
PROC: 0Y6M0ZC Detachment at Right Foot, Partial 3rd Ray, Open Approach (ICD-10-PCS; principal; 2018-01-02 18:40)
PROC: 0Y6M0ZD Detachment at Right Foot, Partial 4th Ray, Open Approach (ICD-10-PCS; 2018-01-02 18:40)
DX: A41.9 Sepsis, unspecified organism (principal); L02.611 Cutaneous abscess of right foot; L03.115 Cellulitis of right lower limb; L03.116 Cellulitis of left lower limb; M86.171 Other acute osteomyelitis, right ankle and foot; K52.9 Noninfective gastroenteritis and colitis, unspecified; E11.65 Type 2 diabetes mellitus with hyperglycemia; E11.621 Type 2 diabetes mellitus with foot ulcer; E11.69 Type 2 diabetes mellitus with other specified complication; E66.01 Morbid (severe) obesity due to excess calories; E78.5 Hyperlipidemia, unspecified; E87.6 Hypokalemia; I10 Essential (primary) hypertension; L97.519 Non-pressure chronic ulcer of other part of right foot with unspecified severity; L97.529 Non-pressure chronic ulcer of other part of left foot with unspecified severity; B95.1 Streptococcus, group B, as the cause of diseases classified elsewhere; B96.4 Proteus (mirabilis) (morganii) as the cause of diseases classified elsewhere; B95.8 Unspecified staphylococcus as the cause of diseases classified elsewhere; B96.6 Bacteroides fragilis [B. fragilis] as the cause of diseases classified elsewhere; B95.2 Enterococcus as the cause of diseases classified elsewhere; B95.4 Other streptococcus as the cause of diseases classified elsewhere; Z68.39 Body mass index [BMI] 39.0-39.9, adult; Z88.8 Allergy status to other drugs, medicaments and biological substances; Z79.01 Long term (current) use of anticoagulants; Z79.4 Long term (current) use of insulin; Z89.429 Acquired absence of other toe(s), unspecified side; Z87.891 Personal history of nicotine dependence; Z86.718 Personal history of other venous thrombosis and embolism; Z91.14 Patient's other noncompliance with medication regimen; Z83.3 Family history of diabetes mellitus
CPT/HCPCS: 36415; 73630; 73718; 74176; 80048; 80053; 80202; 81001; 82948; 83690; 85025; 85027; 87040; 87070; 87076; 87077; 87186; 87205; 87507; 87804; 88305; 88311; 93005; 93925; 97039; 99291; J0360; J1100; J1170; J1815; J2001; J2250; J2405; J2543; J2704; J3010; J3370; J3490; J7030; J7040; Q2038

== ENCOUNTER 2018-01-29 15:52 | Inpatient (IN) | payer OTHER ==
[~2018-01-29] VITALS: Ht 188 cm; Wt 142.6 kg
[~2018-01-29 15:52] MED LIST: ATOR40TA69 PO; GLIM1TAB2 PO; HONE44PA TP; LISI-613 PO; METF-445 PO; SITA100T12 PO
[2018-01-29 17:25] LABS: BASOPHILS % (AUTO) 0.5 % (0.0-5.0); EOSINOPHILS % (AUTO) 2.6 % (0.0-8.0); HEMATOCRIT 32.3 % (42-54); LYMPHOCYTES % (AUTO) 27.2 % (21.0-51.0); MEAN CORPUSCULAR HGB CONC 32.3 g/dL (32.0-36.0); MEAN CORPUSCULAR VOLUME 77.3 fL (79-99); MONOCYTES % (AUTO) 7.7 % (3.0-13.0); PLATELET COUNT (AUTO) 261 K/uL (130-400); RED BLOOD CELL COUNT(AUTO) 4.18 MIL/uL (4.50-6.20); RED CELL DISTRIBUTION WIDTH 15.1 % (11.0-15.5); WHITE BLOOD COUNT (AUTO) 7.9 K/uL (4.8-10.8)
[2018-01-29 17:40] LABS: POTASSIUM 3.9 mmol/L (3.5-5.1)
[2018-01-29 17:45] LABS: ALBUMIN 3.2 g/dL (3.5-5.0); BILIRUBIN,TOTAL 0.3 mg/dL (0.2-1.0); TOTAL PROTEIN, SERUM 7.7 g/dL (6.0-8.3)
[2018-01-29 18:39] LABS: ERYTHROCYTE SEDIMENTATION RATE 63 MM/HR (0-15)
[2018-01-29] MEDS ORDERED: ZOSYN 3.375GM+NS 50ML 50 ML IV ONE (19:36)
[2018-01-29] MEDS ORDERED: VANCOMYCIN 1GM+NS 250ML 250 ML IV ONE (20:14)
[2018-01-29] MEDS ORDERED: VANCOMYCIN PROTOCOL PER PHARMACY IV PRN (21:00)
[2018-01-29] MEDS: ATORVASTATIN CALCIUM 40 MG TABLET PO SCH (21:00)
[2018-01-29] MEDS: ZOSYN 3.375GM+NS 50ML 50 ML IV SCH (21:00)
[2018-01-29] MEDS: FAMOTIDINE/PF 20 MG/2 ML VIAL IV SCH (21:00)
[2018-01-29] MEDS ORDERED: ACETAMINOPHEN 325 MG TAB PO PRN (21:00)
[2018-01-29] MEDS: ENOXAPARIN SODIUM 40 MG/0.4 ML SYRINGE SQ SCH (21:00)
[2018-01-29] MEDS ORDERED: ONDANSETRON HCL 4 MG/2 ML VIAL IV PRN (21:00)
[2018-01-30] MEDS ORDERED: MORPHINE SULFATE 4 MG/1ML SYG ONE (00:05)
[2018-01-30] MEDS ORDERED: ONDANSETRON HCL 4 MG/2 ML VIAL ONE (00:05)
[2018-01-30 01:50] VITALS: BP_SYST 158; BP_SYST 161; BP_DIAS 100; BP_DIAS 111
[2018-01-30] MEDS ORDERED: CLONIDINE HCL 0.1 MG TABLET ONE (02:28)
[2018-01-30] MEDS ORDERED: CLONIDINE HCL 0.1 MG TABLET PO PRN (02:30)
[2018-01-30] MEDS: SODIUM CHLORIDE 0.9% 1000ML 1,000 ML IV SCH ×3 (02:43→16:50)
[2018-01-30] MEDS ORDERED: DEXTROSE 50%-WATER 50 ML DISP.SYRIN IV PRN (03:15)
[2018-01-30] MEDS ORDERED: GLUCAGON 1MG KIT 1 MG ML IM PRN (03:15)
[2018-01-30] MEDS ORDERED: AMOX500C2 PO (03:21)
[2018-01-30] MEDS ORDERED: METR-224 PO (03:21)
[2018-01-30] MEDS ORDERED: APIX5TAB PO (03:21)
[2018-01-30 04:00] VITALS: BP 164/97
[2018-01-30] MEDS: ZOSYN 3.375GM+NS 50ML 50 ML IV SCH ×3 (04:40→21:27)
[2018-01-30] MEDS: INSULIN HUMULIN R 100 UNIT/ML 3ML SQ SCH ×4 (06:11→21:28)
[2018-01-30] MEDS ORDERED: COMPOUND IV REFRIGERATED 1 EACH IVSOLN MISC PRN (06:30)
[2018-01-30 07:30] VITALS: BP 152/99
[2018-01-30] MEDS: VANCOMYCIN 1.25 GM in SODIUM CHLORIDE 0.9% 250 ML IV SCH ×3 (07:40→22:16)
[2018-01-30] MEDS: ENOXAPARIN SODIUM 40 MG/0.4 ML SYRINGE SQ SCH ×2 (09:00→19:56)
[2018-01-30] MEDS: LISINOPRIL 20 MG TABLET PO SCH (09:52)
[2018-01-30] MEDS: FAMOTIDINE/PF 20 MG/2 ML VIAL IV SCH ×2 (09:52→19:54)
[2018-01-30] MEDS ORDERED: HONEY 1 APPL/ML TUBE TP SCH (10:30)
[2018-01-30 11:00] VITALS: BP 167/94
[2018-01-30 11:07] LABS: BASOPHILS % (AUTO) 0.6 % (0.0-5.0); EOSINOPHILS % (AUTO) 3.2 % (0.0-8.0); HEMATOCRIT 29.4 % (42-54); LYMPHOCYTES % (AUTO) 33.1 % (21.0-51.0); MEAN CORPUSCULAR HEMOGLOBIN 25.5 pg (27.0-33.0); MEAN CORPUSCULAR VOLUME 77.3 fL (79-99); MONOCYTES % (AUTO) 7.6 % (3.0-13.0); NEUTROPHILS % (AUTO) 55.5 % (40.0-77.0); PLATELET COUNT (AUTO) 244 K/uL (130-400); RED BLOOD CELL COUNT(AUTO) 3.81 MIL/uL (4.50-6.20); RED CELL DISTRIBUTION WIDTH 14.4 % (11.0-15.5); WHITE BLOOD COUNT (AUTO) 7.2 K/uL (4.8-10.8)
[2018-01-30 11:17] LABS: CREATININE 0.9 mg/dL (0.5-1.5)
[2018-01-30] MEDS: MORPHINE SULFATE 4 MG/1ML SYG IV PRN ×2 (13:16→18:35)
[2018-01-30 16:00] VITALS: BP 171/98
[2018-01-30 19:00] VITALS: BP_SYST 161; BP_SYST 165; BP_DIAS 100; BP_DIAS 102
[2018-01-30] MEDS ORDERED: PHARMACY COMMUNICATION MISC SCH (19:45)
[2018-01-30] MEDS: ATORVASTATIN CALCIUM 40 MG TABLET PO SCH (19:55)
[2018-01-31] VITALS: BP 135/77
[2018-01-31] MEDS: SODIUM CHLORIDE 0.9% 1000ML 1,000 ML IV SCH (02:02)
[2018-01-31 04:00] VITALS: BP 123/85
[2018-01-31] MEDS: ZOSYN 3.375GM+NS 50ML 50 ML IV SCH (04:48)
[2018-01-31 06:08] LABS: MEAN CORPUSCULAR HEMOGLOBIN 24.8 pg (27.0-33.0); MEAN CORPUSCULAR HGB CONC 32.2 g/dL (32.0-36.0); MEAN CORPUSCULAR VOLUME 76.8 fL (79-99); NUCLEATED RED BLOOD CELLS 0.1 % (0.0-0.19); PLATELET COUNT (AUTO) 250 K/uL (130-400); RED BLOOD CELL COUNT(AUTO) 4.04 MIL/uL (4.50-6.20)
[2018-01-31 06:23] LABS: CREATININE 0.8 mg/dL (0.5-1.5); POTASSIUM 3.8 mmol/L (3.5-5.1)
[2018-01-31] MEDS: INSULIN HUMULIN R 100 UNIT/ML 3ML SQ SCH (06:34)
[2018-01-31] MEDS: VANCOMYCIN 1.25 GM in SODIUM CHLORIDE 0.9% 250 ML IV SCH (06:35)
[2018-01-31 08:00] VITALS: BP 144/94
[2018-01-31] MEDS: LISINOPRIL 20 MG TABLET PO SCH (08:55)
[2018-01-31] MEDS: FAMOTIDINE/PF 20 MG/2 ML VIAL IV SCH (08:55)
[2018-01-31] MEDS: ENOXAPARIN SODIUM 40 MG/0.4 ML SYRINGE SQ SCH (08:55)
[2018-01-31 12:00] VITALS: BP 152/94
[2018-01-31] MEDS ORDERED: VANCOMYCIN 1.25 GM in N.S. 250 ML IV SCH (22:30)
== END 2018-01-31 12:50 | disposition home or self-care (01) | DRG 565 ==
LOC: EDH 15:52 → OBSVTOIN 15:53 → EDHIP 15:53 → 3DH 01-30 01:30
PROVIDERS: ADMIT Internal Medicine; ATTEND Internal Medicine
DX: T87.89 Other complications of amputation stump (principal); M86.9 Osteomyelitis, unspecified; Z68.41 Body mass index [BMI] 40.0-44.9, adult; E11.65 Type 2 diabetes mellitus with hyperglycemia; E11.69 Type 2 diabetes mellitus with other specified complication; E66.9 Obesity, unspecified; E78.5 Hyperlipidemia, unspecified; F17.200 Nicotine dependence, unspecified, uncomplicated; I11.9 Hypertensive heart disease without heart failure; J06.9 Acute upper respiratory infection, unspecified; Y83.5 Amputation of limb(s) as the cause of abnormal reaction of the patient, or of later complication, without mention of misadventure at the time of the procedure; Y92.89 Other specified places as the place of occurrence of the external cause; Z89.431 Acquired absence of right foot; Z79.4 Long term (current) use of insulin; Z88.8 Allergy status to other drugs, medicaments and biological substances; Z83.3 Family history of diabetes mellitus; Z82.5 Family history of asthma and other chronic lower respiratory diseases; Z82.49 Family history of ischemic heart disease and other diseases of the circulatory system
CPT/HCPCS: 36415; 73630; 73718; 80048; 80053; 82948; 85025; 85027; 85651; 87040; G0378; J1650; J1815; J2270; J2405; J2543; J3370; J3490; J7030

== ENCOUNTER 2018-03-17 22:48 | Emergency (ER) | payer OTHER ==
[~2018-03-17 22:48] MED LIST changes: +AMOX500C2 PO; +APIX5TAB PO; +METR-172 PO
[2018-03-17] MEDS ORDERED: MORPHINE SULFATE 4 MG/1ML SYG ONE (23:31)
== END 2018-03-18 00:55 | disposition home or self-care (01) ==
LOC: EDH 22:48
DX: M79.671 Pain in right foot (principal); M79.604 Pain in right leg; I10 Essential (primary) hypertension; E78.5 Hyperlipidemia, unspecified; E11.9 Type 2 diabetes mellitus without complications; Z98.890 Other specified postprocedural states; Z86.718 Personal history of other venous thrombosis and embolism; Z88.1 Allergy status to other antibiotic agents; Z88.2 Allergy status to sulfonamides; Z79.4 Long term (current) use of insulin
CPT/HCPCS: 96372; 99283; J2270

== ENCOUNTER 2018-03-20 13:49 | Emergency (ER) | payer OTHER | END 2018-03-20 14:19 | disposition home or self-care (01) | LOC: EDH 13:49 | DX: S93.401A Sprain of unspecified ligament of right ankle, initial encounter (principal); E11.9 Type 2 diabetes mellitus without complications; I10 Essential (primary) hypertension; E78.5 Hyperlipidemia, unspecified; Z86.718 Personal history of other venous thrombosis and embolism; Z79.4 Long term (current) use of insulin; Z88.2 Allergy status to sulfonamides; Z88.1 Allergy status to other antibiotic agents; W22.8XXA Striking against or struck by other objects, initial encounter; Y93.02 Activity, running; Y92.89 Other specified places as the place of occurrence of the external cause; Y99.8 Other external cause status | CPT/HCPCS: 82948 ==

== ENCOUNTER → 2018-12-03 | Outpatient (CLI) | payer MEDICAID ==
[~2018-12-03] MED LIST changes: -GLIM1TAB2 PO; +GLIM1TAB3 PO
== END | disposition home or self-care (01) ==
LOC: SHCH 11:04
PROVIDERS: ATTEND Internal Medicine Cardiovascular Disease
DX: I10 Essential (primary) hypertension (principal)
CPT/HCPCS: 93306

== ENCOUNTER 2019-04-18 18:45 | Emergency (ER) | payer MEDICAID ==
[~2019-04-18 18:45] MED LIST changes: +GLIM1TAB18 PO; -GLIM1TAB3 PO
[2019-04-18 19:35] LABS: BASOPHILS % (AUTO) 0.4 % (0.0-5.0); EOSINOPHILS % (AUTO) 4.5 % (0.0-8.0); HEMATOCRIT 34.1 % (42-54); LYMPHOCYTES % (AUTO) 29.1 % (21.0-51.0); MEAN CORPUSCULAR HGB CONC 32.6 g/dL (32.0-36.0); MONOCYTES % (AUTO) 7.7 % (3.0-13.0); NEUTROPHILS % (AUTO) 57.3 % (40.0-77.0); PLATELET COUNT (AUTO) 244 K/uL (130-400); RED BLOOD CELL COUNT(AUTO) 4.11 MIL/uL (4.50-6.20); RED CELL DISTRIBUTION WIDTH 13.3 % (11.0-15.5); WHITE BLOOD COUNT (AUTO) 9.3 K/uL (4.8-10.8)
[2019-04-18 19:58] LABS: CREATININE 1.2 mg/dL (0.5-1.5); POTASSIUM 4.4 mmol/L (3.5-5.1)
[2019-04-18 20:03] LABS: ALBUMIN 3.4 g/dL (3.5-5.0); BILIRUBIN,TOTAL 0.3 mg/dL (0.2-1.0); TOTAL PROTEIN, SERUM 7.7 g/dL (6.0-8.3)
== END 2019-04-18 20:46 | disposition home or self-care (01) ==
LOC: EDH 18:45
DX: M79.661 Pain in right lower leg (principal); E11.9 Type 2 diabetes mellitus without complications; I10 Essential (primary) hypertension; E78.5 Hyperlipidemia, unspecified; Z86.718 Personal history of other venous thrombosis and embolism; Z88.1 Allergy status to other antibiotic agents; Z88.8 Allergy status to other drugs, medicaments and biological substances; Z90.49 Acquired absence of other specified parts of digestive tract
CPT/HCPCS: 36415; 80053; 83605; 85025; 93971

== ENCOUNTER → 2019-09-26 | Outpatient (CLI) | payer MEDICAID | END | disposition home or self-care (01) | LOC: SHCH 10:09 | PROVIDERS: ATTEND Internal Medicine Cardiovascular Disease | DX: I80.201 Phlebitis and thrombophlebitis of unspecified deep vessels of right lower extremity (principal) | CPT/HCPCS: 93922 ==

== ENCOUNTER 2019-10-20 07:38 | Inpatient (IN) | payer MEDICAID ==
[~2019-10-20] VITALS: Ht 188 cm; Wt 149.7 kg
[2019-10-20 08:02] LABS: BASOPHILS % (AUTO) 0.4 % (0.0-5.0); EOSINOPHILS % (AUTO) 1.2 % (0.0-8.0); HEMATOCRIT 31.3 % (42-54); LYMPHOCYTES % (AUTO) 14.9 % (21.0-51.0); MEAN CORPUSCULAR HEMOGLOBIN 26.4 pg (27.0-33.0); MEAN CORPUSCULAR HGB CONC 31.9 g/dL (32.0-36.0); MEAN CORPUSCULAR VOLUME 82.6 fL (79-99); MONOCYTES % (AUTO) 9.4 % (3.0-13.0); NEUTROPHILS % (AUTO) 72.5 % (40.0-77.0); PLATELET COUNT (AUTO) 405 K/uL (130-400); RED BLOOD CELL COUNT(AUTO) 3.79 MIL/uL (4.50-6.20); RED CELL DISTRIBUTION WIDTH 13.8 % (11.0-15.5); WHITE BLOOD COUNT (AUTO) 15.9 K/uL (4.8-10.8)
[2019-10-20 08:42] LABS: INR 1.02 (0.85-1.15); PARTIAL THROMBOPLASTIN TIME 31.7 SEC (26.3-35.5)
[2019-10-20] MEDS ORDERED: CLINDAMYCIN 600 MG/D5% WATER 50 ML IV ONE (08:56)
[2019-10-20 09:02] LABS: CARBON DIOXIDE 24 mmol/L (21-32); CHLORIDE 97 mmol/L (101-111); CREATININE 2.7 mg/dL (0.5-1.5); GLOMERULAR FILTR. RATE CALC 29 mL/min (>60); GLUCOSE,RANDOM 303 mg/dL (70-105); POTASSIUM 4.6 mmol/L (3.5-5.1); SODIUM SERUM 131 mmol/L (136-145); UREA NITROGEN, BLOOD 66 mg/dL (7-18)
[2019-10-20 09:15] LABS: ALANINE AMINOTRANSFERASE 21 U/L (12-78); ALBUMIN 3.3 g/dL (3.5-5.0); ASPARTATE AMINOTRANSFERASE 17 U/L (10-37); BILIRUBIN,TOTAL 0.5 mg/dL (0.2-1.0); CREATINE KINASE, TOTAL 163 U/L (21-232); MYOGLOBIN 167 ng/mL (10-92); TOTAL PROTEIN, SERUM 8.7 g/dL (6.0-8.3); TROPONIN I < 0.04 ng/mL (0.00-0.06)
[2019-10-20 09:15] LABS: APPEARANCE,URINE Clear (CLEAR); BILIRUBIN,URINE Negative (NEGATIVE); COLOR,URINE Yellow (YELLOW); GLUCOSE, URINE (UA) >=1000 mg/dL (NEGATIVE); KETONES,URINE Negative (NEGATIVE); LEUKOCYTE ESTERASE ,URINE Negative (NEGATIVE); NITRATE,URINE Negative (NEGATIVE); OCCULT BLOOD,URINE Negative (NEGATIVE); PROTEIN,URINE Negative (NEGATIVE)
[2019-10-20 09:26] LABS: BACTERIA,URINE Rare /HPF (None Seen); RBC,URINE 0-1 /HPF (0-1); SQUAMOUS EPITHELIAL CELL,UR Rare /HPF (0-2)
[2019-10-20] MEDS: SODIUM CHLORIDE 0.9% 1000ML 1,000 ML IV SCH ×2 (10:05→20:42)
[2019-10-20] MEDS ORDERED: MORPHINE SULFATE 2 MG/ML 1ML SYG IV PRN (10:15)
[2019-10-20] MEDS ORDERED: UNASYN 1.5GM+NS 100ML IV SCH (10:15)
[2019-10-20] MEDS ORDERED: ONDANSETRON HCL 4 MG/2 ML VIAL IV PRN (10:15)
[2019-10-20] MEDS ORDERED: ACETAMINOPHEN 325 MG TAB PO PRN (10:15)
[2019-10-20] MEDS ORDERED: LACTULOSE 20 GM/30 ML UDCUP PO PRN (10:15)
[2019-10-20] MEDS ORDERED: VANCOMYCIN PROTOCOL PER PHARMACY IV PRN (10:15)
[2019-10-20] MEDS ORDERED: HYDRALAZINE HCL 20 MG/ML VIAL IM PRN (10:30)
[2019-10-20] MEDS ORDERED: AMLODIPINE BESYLATE 5 MG TAB PO SCH ×2 (10:30→11:00)
[2019-10-20] MEDS ORDERED: INSULIN GLARGINE 100 UNITS/ML 10 ML VIAL SQ SCH (10:30)
[2019-10-20] MEDS ORDERED: AMPICILLIN 1GM+NS 50ML 50 ML IV SCH (10:30)
[2019-10-20] MEDS ORDERED: VANCOMYCIN 1GM+NS 250ML 250 ML IV SCH (10:45)
[2019-10-20] MEDS ORDERED: AMPICILLIN SODIUM/SULBACTAM NA 1.5GM VIAL ONE (11:16)
[2019-10-20] MEDS ORDERED: SODIUM CHLORIDE 0.9% 100 ML IV ONE (11:19)
[2019-10-20] MEDS: UNASYN 1.5GM+NS 100ML 100 ML IV SCH ×3 (12:00→23:32)
[2019-10-20] MEDS ORDERED: MORPHINE SULFATE 4 MG/1ML SYG ONE (12:04)
[2019-10-20] MEDS ORDERED: ONDANSETRON HCL 4 MG/2 ML VIAL ONE (12:04)
[2019-10-20 12:21] LABS: CREATININE,URINE RANDOM 89 mg/dL (30-135); SODIUM,URINE RANDOM 49 mmol/l (40-220)
[2019-10-20] MEDS ORDERED: COMPOUND IV REFRIGERATED 1 EACH IVSOLN MISC PRN (12:30)
[2019-10-20] MEDS ORDERED: VANCOMYCIN 2.5 GM in SODIUM CHLORIDE 0.9% 500ML 500 ML IV ONE (13:00)
[2019-10-20] MEDS ORDERED: VANCOMYCIN 1.25 GM in SODIUM CHLORIDE 0.9% 250 ML IV SCH (13:00)
[2019-10-20 13:13] VITALS: BP 142/80
[2019-10-20] MEDS ORDERED: INSULIN GLARGINE 100 UNITS/ML 10 ML VIAL SQ ONE (13:15)
[2019-10-20] MEDS: INSULIN HUMULIN R 100 UNIT/ML 3ML SQ SCH ×3 (13:49→21:02)
[2019-10-20] MEDS: HEPARIN SODIUM 5000UNIT/ML 1ML VIAL SQ SCH ×2 (13:50→21:01)
--- NOTE | 2019-10-20 14:08 | NUR ---
[facility] CONSULT PATIENT ASSESSED REQUESTED: [facility] RECOMMENDATIONS SUBMITTED AND REPORT GIVEN TO PATIENT'S NURSE. DR. AZIZA PAL CONSULTED FOR WOUND CARE. Addendum: 10/20/19 at 1411 by RAMESH GAFFNEY LVN LVN W Amended: Links added.
[2019-10-20] MEDS: HONEY 1 APPL/ML TUBE TP SCH ×2 (14:14→16:04)
[2019-10-20] MEDS: MORPHINE SULFATE 4 MG/1ML SYG IV PRN ×2 (15:31→20:51)
[2019-10-20 16:02] VITALS: BP 115/62
[2019-10-20 19:53] VITALS: BP 128/76
--- NOTE | 2019-10-20 20:00 | NUR ---
assessment note patient awake, alert, ox3, no sob ,no c/o pain at this time, teach patient plan of care and expected outcome, patient verbalizes understanding via teach back, call benavides at reach, dressing right foot d/i
[2019-10-20] MEDS ORDERED: EZET10TA13 PO (20:09)
[2019-10-20] MEDS ORDERED: INSU100C6 SQ (20:09)
[2019-10-20] MEDS ORDERED: ROSU20TA31 PO (20:09)
[2019-10-20] MEDS ORDERED: DAPA5TAB PO (20:09)
[2019-10-20] MEDS ORDERED: HYDR25TA PO (20:09)
[2019-10-20] MEDS ORDERED: LISI-617 PO (20:09)
[2019-10-20] MEDS ORDERED: GABA300S PO (20:09)
[2019-10-20] MEDS ORDERED: SITA1TAB6 PO (20:09)
[2019-10-20] MEDS ORDERED: INSLAN SQ (20:09)
[2019-10-20] MEDS: FAMOTIDINE/PF 20 MG/2 ML VIAL IV SCH (20:42)
[2019-10-20 23:33] VITALS: BP 118/63
[2019-10-21] MEDS: MORPHINE SULFATE 4 MG/1ML SYG IV PRN ×3 (03:31→11:51)
[2019-10-21 03:43] VITALS: BP 144/81
[2019-10-21] MEDS: SODIUM CHLORIDE 0.9% 1000ML 1,000 ML IV SCH ×3 (04:14→23:57)
[2019-10-21 04:41] LABS: BASOPHILS % (AUTO) 0.3 % (0.0-5.0); EOSINOPHILS % (AUTO) 2.1 % (0.0-8.0); HEMATOCRIT 28.4 % (42-54); LYMPHOCYTES % (AUTO) 15.9 % (21.0-51.0); MEAN CORPUSCULAR HEMOGLOBIN 26.6 pg (27.0-33.0); MEAN CORPUSCULAR HGB CONC 31.7 g/dL (32.0-36.0); MONOCYTES % (AUTO) 10.7 % (3.0-13.0); NEUTROPHILS % (AUTO) 69.2 % (40.0-77.0); PLATELET COUNT (AUTO) 376 K/uL (130-400); RED BLOOD CELL COUNT(AUTO) 3.38 MIL/uL (4.50-6.20); RED CELL DISTRIBUTION WIDTH 13.8 % (11.0-15.5); WHITE BLOOD COUNT (AUTO) 12.6 K/uL (4.8-10.8)
[2019-10-21 04:59] LABS: CREATININE 1.6 mg/dL (0.5-1.5); MAGNESIUM 2.2 mg/dL (1.80-2.40); PHOSPHORUS 3.1 mg/dL (2.5-4.9); POTASSIUM 4.7 mmol/L (3.5-5.1); URIC ACID 9.6 mg/dL (2.6-7.2)
[2019-10-21] MEDS: UNASYN 1.5GM+NS 100ML 100 ML IV SCH ×4 (05:30→23:57)
[2019-10-21] MEDS: INSULIN HUMULIN R 100 UNIT/ML 3ML SQ SCH ×4 (05:56→21:25)
[2019-10-21 07:30] VITALS: BP 145/79
[2019-10-21] MEDS: FAMOTIDINE/PF 20 MG/2 ML VIAL IV SCH ×2 (07:54→19:58)
[2019-10-21] MEDS: INSULIN GLARGINE 100 UNITS/ML 10 ML VIAL SQ SCH (07:54)
[2019-10-21] MEDS: HONEY 1 APPL/ML TUBE TP SCH (07:54)
[2019-10-21] MEDS: AMLODIPINE BESYLATE 5 MG TAB PO SCH (07:55)
[2019-10-21] MEDS: FOLIC ACID/VITAMIN B COMP W-C 1 CAP TAB PO SCH (07:55)
[2019-10-21] MEDS: HEPARIN SODIUM 5000UNIT/ML 1ML VIAL SQ SCH ×3 (07:58→19:59)
[2019-10-21 11:00] VITALS: BP 119/65
--- NOTE | 2019-10-21 12:15 | NUR ---
DCP CM met with pt discussed dc plans. Pt is luz-independent prior to admission, lives at home with father. Pt has a cane, shower chair, verbalized had provider 16hrs/wk but discontinued recently. Pt verbalized he will ask to have provider reactivate again as he is going to have amputation during this admission and will need assistance at home. Pt feels safe to go back home, still drives only if needed. Pt agreeable for placement if necessary, would like to discuss once closer to dc and after he has PT to see how far he can do things on his own first. Informed ptwill wait for Dr Justin and Dr Berg's recommendations after surgery. DC plan to home vs w/hh or SNF. CM to cont to follow up. Addendum: 10/21/19 at 1219 by STACIE CORDERO LVN CM Amended: Links added.
[2019-10-21] MEDS ORDERED: HYDROMORPHONE HCL 2 MG/ML VIAL IVP PRN (13:30)
[2019-10-21] MEDS ORDERED: DIPH,PERTUSS(ACELL),TET VAC/PF 0.5 ML VIAL IM ONE (14:30)
[2019-10-21] MEDS: HYDROMORPHONE 1 MG/1 ML AMP IVP PRN ×2 (14:57→20:02)
[2019-10-21 16:00] VITALS: BP 118/70
[2019-10-21 20:00] VITALS: BP 143/83
[2019-10-22] VITALS (25 sets, daily range): BP systolic 124–165; BP diastolic 61–91
[2019-10-22] MEDS: INSULIN GLARGINE 100 UNITS/ML 10 ML VIAL SQ SCH (01:12)
[2019-10-22] MEDS: HYDROMORPHONE 1 MG/1 ML AMP IVP PRN ×4 (01:16→23:16)
[2019-10-22] MEDS: UNASYN 1.5GM+NS 100ML 100 ML IV SCH ×4 (05:35→23:13)
[2019-10-22 06:06] LABS: MEAN CORPUSCULAR HGB CONC 31.1 g/dL (32.0-36.0); MEAN CORPUSCULAR VOLUME 83.8 fL (79-99); RED BLOOD CELL COUNT(AUTO) 3.34 MIL/uL (4.50-6.20); RED CELL DISTRIBUTION WIDTH 13.5 % (11.0-15.5); WHITE BLOOD COUNT (AUTO) 10.7 K/uL (4.8-10.8)
[2019-10-22] MEDS: INSULIN HUMULIN R 100 UNIT/ML 3ML SQ SCH ×4 (06:13→21:00)
[2019-10-22 06:15] LABS: CREATININE 1.3 mg/dL (0.5-1.5); POTASSIUM 4.9 mmol/L (3.5-5.1)
[2019-10-22] MEDS: FAMOTIDINE/PF 20 MG/2 ML VIAL IV SCH ×2 (08:27→21:22)
[2019-10-22] MEDS: FOLIC ACID/VITAMIN B COMP W-C 1 CAP TAB PO SCH (08:27)
[2019-10-22] MEDS: HONEY 1 APPL/ML TUBE TP SCH (08:28)
[2019-10-22] MEDS: AMLODIPINE BESYLATE 5 MG TAB PO SCH (08:28)
[2019-10-22] MEDS: HEPARIN SODIUM 5000UNIT/ML 1ML VIAL SQ SCH ×3 (08:28→21:34)
[2019-10-22] MEDS ORDERED: BUPIVACAINE/PF 0.5% 30ML VIAL ONE (09:13)
[2019-10-22] MEDS ORDERED: LIDOCAINE HCL 1% 20 ML VIAL ONE (09:13)
[2019-10-22] MEDS ORDERED: MIDAZOLAM HCL 1 MG/ML 2ML VIAL ONE (09:16)
[2019-10-22] MEDS ORDERED: FENTANYL CITRATE PF 50 MCG/1 ML 2ML VIAL ONE (09:17)
[2019-10-22] MEDS ORDERED: PROPOFOL 10 MG/ML 20ML VIAL IV ONE (09:17)
[2019-10-22] MEDS ORDERED: MEPERIDINE-PF 25 MG/ML SYG ONE (10:45)
[2019-10-22] MEDS: SODIUM CHLORIDE 0.9% 1000ML 1,000 ML IV SCH ×2 (12:05→23:23)
--- NOTE | 2019-10-22 19:50 | NUR ---
PM Assessment Received pt awake with rt foot elevated on 3 folded blankets, s/p cutting of skin soft tissue & bone with removal of right 2nd toe & portion of metatarsals with tendon repair today, NS at 100cc/hr infusing well. Routine assessment done, plan of care discuss, denies discomfort at this time. Pt reminded no weight bearing on his right foot, pending physical therapy eval & treat for tomorrow.
[2019-10-23 03:35] VITALS: BP 151/89
[2019-10-23] MEDS: HYDROMORPHONE 1 MG/1 ML AMP IVP PRN ×4 (03:43→21:45)
[2019-10-23 06:05] LABS: BASOPHILS % (AUTO) 0.5 % (0.0-5.0); EOSINOPHILS % (AUTO) 2.8 % (0.0-8.0); HEMATOCRIT 26.2 % (42-54); LYMPHOCYTES % (AUTO) 22.2 % (21.0-51.0); MEAN CORPUSCULAR HEMOGLOBIN 25.9 pg (27.0-33.0); MEAN CORPUSCULAR HGB CONC 31.3 g/dL (32.0-36.0); MEAN CORPUSCULAR VOLUME 82.9 fL (79-99); MONOCYTES % (AUTO) 9.3 % (3.0-13.0); NEUTROPHILS % (AUTO) 63.5 % (40.0-77.0); PLATELET COUNT (AUTO) 396 K/uL (130-400); RED BLOOD CELL COUNT(AUTO) 3.16 MIL/uL (4.50-6.20); RED CELL DISTRIBUTION WIDTH 13.2 % (11.0-15.5); WHITE BLOOD COUNT (AUTO) 10.5 K/uL (4.8-10.8)
[2019-10-23] MEDS: INSULIN HUMULIN R 100 UNIT/ML 3ML SQ SCH ×4 (06:23→21:58)
[2019-10-23 06:27] LABS: ALBUMIN 2.6 g/dL (3.5-5.0); BILIRUBIN,TOTAL 0.3 mg/dL (0.2-1.0); POTASSIUM 4.6 mmol/L (3.5-5.1); TOTAL PROTEIN, SERUM 7.5 g/dL (6.0-8.3)
[2019-10-23] MEDS: UNASYN 1.5GM+NS 100ML 100 ML IV SCH ×4 (06:28→23:00)
[2019-10-23] MEDS: INSULIN GLARGINE 100 UNITS/ML 10 ML VIAL SQ SCH (06:44)
[2019-10-23 08:41] VITALS: BP 153/93
[2019-10-23] MEDS: FAMOTIDINE/PF 20 MG/2 ML VIAL IV SCH ×2 (08:53→21:45)
[2019-10-23] MEDS: FOLIC ACID/VITAMIN B COMP W-C 1 CAP TAB PO SCH (08:53)
[2019-10-23] MEDS: AMLODIPINE BESYLATE 5 MG TAB PO SCH (08:53)
[2019-10-23] MEDS: HEPARIN SODIUM 5000UNIT/ML 1ML VIAL SQ SCH ×3 (08:58→21:58)
[2019-10-23 12:24] VITALS: BP 144/83
[2019-10-23] MEDS ORDERED: HYDROMORPHONE 4MG/ML 1ML VIAL IVP PRN (12:45)
[2019-10-23] MEDS: ACETAMINOPHEN-CODEINE 300/30MG TAB PO PRN ×2 (12:52→19:03)
[2019-10-23 16:44] VITALS: BP 141/92
[2019-10-23 20:00] VITALS: BP 137/79
[2019-10-23] MEDS: SODIUM CHLORIDE 0.9% 1000ML 1,000 ML IV SCH (23:00)
[2019-10-23 23:41] VITALS: BP 136/75
[2019-10-24] VITALS (7 sets, daily range): BP systolic 125–176; BP diastolic 71–94
[2019-10-24] MEDS: SODIUM CHLORIDE 0.9% 1000ML 1,000 ML IV SCH ×3 (04:05→22:06)
[2019-10-24 04:08] LABS: BASOPHILS % (AUTO) 0.5 % (0.0-5.0); EOSINOPHILS % (AUTO) 3.4 % (0.0-8.0); HEMATOCRIT 23.7 % (42-54); LYMPHOCYTES % (AUTO) 24.3 % (21.0-51.0); MEAN CORPUSCULAR HEMOGLOBIN 26.1 pg (27.0-33.0); MEAN CORPUSCULAR HGB CONC 31.6 g/dL (32.0-36.0); MEAN CORPUSCULAR VOLUME 82.6 fL (79-99); MONOCYTES % (AUTO) 9.4 % (3.0-13.0); NEUTROPHILS % (AUTO) 60.2 % (40.0-77.0); PLATELET COUNT (AUTO) 415 K/uL (130-400); RED BLOOD CELL COUNT(AUTO) 2.87 MIL/uL (4.50-6.20); RED CELL DISTRIBUTION WIDTH 13.2 % (11.0-15.5); WHITE BLOOD COUNT (AUTO) 10.5 K/uL (4.8-10.8)
[2019-10-24 04:29] LABS: CREATININE 1.1 mg/dL (0.5-1.5); POTASSIUM 4.3 mmol/L (3.5-5.1)
[2019-10-24] MEDS: INSULIN HUMULIN R 100 UNIT/ML 3ML SQ SCH ×4 (06:10→20:09)
[2019-10-24] MEDS: INSULIN GLARGINE 100 UNITS/ML 10 ML VIAL SQ SCH (06:27)
[2019-10-24] MEDS: FOLIC ACID/VITAMIN B COMP W-C 1 CAP TAB PO SCH (09:18)
[2019-10-24] MEDS: AMLODIPINE BESYLATE 5 MG TAB PO SCH (09:18)
[2019-10-24] MEDS: FAMOTIDINE/PF 20 MG/2 ML VIAL IV SCH ×2 (09:18→20:01)
[2019-10-24] MEDS: UNASYN 1.5GM+NS 100ML 100 ML IV SCH ×3 (09:19→18:38)
[2019-10-24] MEDS: HYDROMORPHONE 1 MG/1 ML AMP IVP PRN ×2 (09:19→20:02)
[2019-10-24] MEDS: HEPARIN SODIUM 5000UNIT/ML 1ML VIAL SQ SCH ×3 (09:28→20:09)
[2019-10-24] MEDS: ACETAMINOPHEN-CODEINE 300/30MG TAB PO PRN (14:01)
--- NOTE | 2019-10-24 15:46 | NUR ---
CM Note: [facility] pending approval CM met with pt discussed MD recommendations for HH for woundcare, pt agreeable, VINCE signed for [facility] will approve. Faxed order, clinicals, PT, confirmation received. Pt pending woundcare order recs from Dr Berg at this time, will send once MD give recommendations. Pt pending approval. Primary nurse aware. CM to continue to follow up.
--- NOTE | 2019-10-24 22:05 | NUR ---
HTN Pt medicated with Hydralazine for bp 165/95.
--- NOTE | 2019-10-24 23:49 | NUR ---
MED EFFECT Bp rechecked 136/77.
[2019-10-25] MEDS: UNASYN 1.5GM+NS 100ML 100 ML IV SCH ×3 (00:05→13:16)
[2019-10-25 03:43] VITALS: BP 132/77
[2019-10-25] MEDS: ACETAMINOPHEN-CODEINE 300/30MG TAB PO PRN ×2 (05:24→12:05)
[2019-10-25] MEDS: SODIUM CHLORIDE 0.9% 1000ML 1,000 ML IV SCH (05:24)
[2019-10-25] MEDS: INSULIN HUMULIN R 100 UNIT/ML 3ML SQ SCH ×2 (05:31→12:56)
[2019-10-25] MEDS: INSULIN GLARGINE 100 UNITS/ML 10 ML VIAL SQ SCH (06:00)
[2019-10-25 07:50] VITALS: BP 143/90
[2019-10-25] MEDS: HYDROMORPHONE 1 MG/1 ML AMP IVP PRN (09:16)
[2019-10-25] MEDS: FOLIC ACID/VITAMIN B COMP W-C 1 CAP TAB PO SCH (09:19)
[2019-10-25] MEDS: AMLODIPINE BESYLATE 5 MG TAB PO SCH (09:20)
[2019-10-25] MEDS: FAMOTIDINE/PF 20 MG/2 ML VIAL IV SCH (09:22)
[2019-10-25] MEDS: HEPARIN SODIUM 5000UNIT/ML 1ML VIAL SQ SCH (09:31)
[2019-10-25 11:02] VITALS: BP 141/85
--- NOTE | 2019-10-25 11:32 | NUR ---
CM Note: [facility] approval CM spoke to Clementina w/[employer] . Pt has approval. Safe to dc via private car once MD clear. Primary nurse aware. CM to cont to follow up.
[2019-10-25] MEDS ORDERED: CEFU500T67 PO (12:11)
--- NOTE | 2019-10-25 15:00 | NUR ---
CM Note: [facility] pending approval and delivery Pt requesting walker upon DC. VINCE signed for any DME company that will approve. Informed pt CM unable to guarantee walker will be approved today and delivered. Patient verbalized it's ok he will wait at home and will use his cane temporarily until able to deliver, pt ambulating in room independently. Faxed and emailed request to [facility] [facility], confirmation received. Pt pending approval and delivery at this time. Primary nurse Tasha aware. Pt request to go home regardless, verbalized will be able to manage at home. CM to cont to follow up.
== END 2019-10-25 15:55 | disposition home health service (06) | DRG 710 ==
LOC: EDH 07:38 → EDHIP 10:05 → 3AH 12:55
PROVIDERS: ADMIT Hospitalist; ATTEND Hospitalist
PROC: 0Y6M0ZB Detachment at Right Foot, Partial 2nd Ray, Open Approach (ICD-10-PCS; principal; 2019-10-22 09:15)
DX: A41.9 Sepsis, unspecified organism (principal); E11.621 Type 2 diabetes mellitus with foot ulcer; L97.519 Non-pressure chronic ulcer of other part of right foot with unspecified severity; N17.9 Acute kidney failure, unspecified; E11.65 Type 2 diabetes mellitus with hyperglycemia; Z79.4 Long term (current) use of insulin; D64.9 Anemia, unspecified; I42.9 Cardiomyopathy, unspecified; E11.69 Type 2 diabetes mellitus with other specified complication; L02.611 Cutaneous abscess of right foot; Z68.41 Body mass index [BMI] 40.0-44.9, adult; E78.5 Hyperlipidemia, unspecified; I10 Essential (primary) hypertension; J45.909 Unspecified asthma, uncomplicated; L03.115 Cellulitis of right lower limb; M86.9 Osteomyelitis, unspecified; Z82.49 Family history of ischemic heart disease and other diseases of the circulatory system; Z82.5 Family history of asthma and other chronic lower respiratory diseases; Z83.3 Family history of diabetes mellitus; Z86.14 Personal history of Methicillin resistant Staphylococcus aureus infection; Z86.718 Personal history of other venous thrombosis and embolism; Z87.891 Personal history of nicotine dependence; E66.01 Morbid (severe) obesity due to excess calories; Z90.49 Acquired absence of other specified parts of digestive tract
CPT/HCPCS: 36415; 71045; 73630; 73718; 76770; 80048; 80053; 81001; 82550; 82570; 82948; 83605; 83735; 83874; 84100; 84145; 84300; 84484; 84540; 84550; 85025; 85027; 85610; 85651; 85730; 86140; 87040; 87070; 87076; 87077; 87186; 87205; 90715; 93005; 93925; 97039; G0378; J0290; J0295; J0360; J1170; J1644; J1815; J2175; J2250; J2270; J2405; J2704; J3010; J3370; J3490; J7030; J7040; J7050

== ENCOUNTER 2019-11-09 21:05 | Emergency (ER) | payer MEDICAID ==
[~2019-11-09 21:05] MED LIST changes: -AMOX500C2 PO; -ATOR40TA69 PO; +DAPA5TAB PO; +EZET10TA13 PO; +GABA300S PO; -GLIM1TAB18 PO; -HONE44PA TP; +HYDR25TA PO; +INSLAN SQ; +INSU100C6 SQ; -LISI-613 PO; +LISI-617 PO; -METF-445 PO; -METR-172 PO; +ROSU20TA31 PO; -SITA100T12 PO; +SITA1TAB6 PO
[2019-11-09] MEDS ORDERED: PROMETHAZINE HCL 25 MG/ML 1ML AMPULE IM ONE (21:06)
[2019-11-09] MEDS ORDERED: ACETAMINOPHEN EXTRA STRENGTH 500 MG TABLET ONE (22:16)
== END 2019-11-09 23:04 | disposition home or self-care (01) ==
LOC: EDH 21:05 → EEVIPCON 21:05 → EDH 23:04
DX: L76.32 Postprocedural hematoma of skin and subcutaneous tissue following other procedure (principal); F41.1 Generalized anxiety disorder; E11.9 Type 2 diabetes mellitus without complications; I10 Essential (primary) hypertension; E78.5 Hyperlipidemia, unspecified; Z88.1 Allergy status to other antibiotic agents; Z90.49 Acquired absence of other specified parts of digestive tract; Z98.890 Other specified postprocedural states
CPT/HCPCS: 96372; 99283; J2550

== ENCOUNTER 2020-01-08 19:51 | Inpatient (IN) | payer MEDICAID ==
[~2020-01-08] VITALS: Ht 190.5 cm; Wt 149.5 kg
[2020-01-08] MEDS ORDERED: SODIUM CHLORIDE 0.9% 1000ML 1,000 ML IV ONE (20:28)
[2020-01-08 20:40] LABS: BASOPHILS % (AUTO) 0.2 % (0.0-5.0); EOSINOPHILS % (AUTO) 0.1 % (0.0-8.0); LYMPHOCYTES % (AUTO) 17.2 % (21.0-51.0); MEAN CORPUSCULAR HEMOGLOBIN 31.7 pg (27.0-33.0); MEAN CORPUSCULAR HGB CONC 36.2 g/dL (32.0-36.0); MEAN CORPUSCULAR VOLUME 87.5 fL (79-99); MONOCYTES % (AUTO) 5.4 % (3.0-13.0); NEUTROPHILS % (AUTO) 76.8 % (40.0-77.0); PLATELET COUNT (AUTO) 335 K/uL (130-400); WHITE BLOOD COUNT (AUTO) 14.4 K/uL (4.8-10.8)
[2020-01-08 21:10] LABS: INR 0.96 (0.85-1.15); PARTIAL THROMBOPLASTIN TIME 29.4 SEC (26.3-35.5); PROTHROMBIN TIME 10.4 SEC (9.6-11.6)
[2020-01-08] MEDS ORDERED: ENOXAPARIN SODIUM 100 MG/1 ML SQ ONE (21:43)
[2020-01-08] MEDS ORDERED: POTASSIUM CHLORIDE 20 MEQ ERTAB PO ONE (21:43)
[2020-01-08] MEDS ORDERED: ENOXAPARIN SODIUM 40 MG/0.4 ML SYRINGE SQ ONE (21:44)
[2020-01-08] MEDS ORDERED: ZOSYN 3.375GM+NS 50ML 50 ML IV ONE (21:44)
[2020-01-08] MEDS ORDERED: VANCOMYCIN 1GM+NS 250ML 250 ML IV ONE ×2 (21:44→21:50)
[2020-01-08 21:55] LABS: APPEARANCE,URINE Clear (CLEAR); BILIRUBIN,URINE Negative (NEGATIVE); COLOR,URINE Yellow (YELLOW); GLUCOSE, URINE (UA) >=1000 mg/dL (NEGATIVE); KETONES,URINE Negative (NEGATIVE); LEUKOCYTE ESTERASE ,URINE Negative (NEGATIVE); NITRATE,URINE Negative (NEGATIVE); OCCULT BLOOD,URINE Trace (NEGATIVE); PROTEIN,URINE Trace mg/dL (NEGATIVE)
[2020-01-08 22:01] LABS: BACTERIA,URINE Few /HPF (None Seen); MUCUS,URINE Few LPF (None Seen); SQUAMOUS EPITHELIAL CELL,UR 0-2 /HPF (0-2)
[2020-01-08] MEDS ORDERED: POTASSIUM CHLORIDE 20 MEQ ERTAB PO PRN (22:30)
[2020-01-08] MEDS ORDERED: LACTULOSE 20 GM/30 ML UDCUP PO PRN (22:30)
[2020-01-08] MEDS ORDERED: VANCOMYCIN PROTOCOL PER PHARMACY IV SCH (22:30)
[2020-01-08] MEDS ORDERED: POTASSIUM CHLORIDE 10MEQ/100ML 100 ML IV PRN (22:30)
[2020-01-08] MEDS ORDERED: LIDOCAINE HCL-MPF 1% 2ML VIAL IV PRN (22:30)
[2020-01-08] MEDS ORDERED: POTASSIUM CHLORIDE 10% ELIXIR 20 MEQ/15 ML UDCUP PO PRN (22:30)
[2020-01-08] MEDS ORDERED: ACETAMINOPHEN 325 MG TAB PO PRN ×2 (22:30)
[2020-01-08] MEDS ORDERED: ONDANSETRON HCL 4 MG/2 ML VIAL IV PRN (22:30)
[2020-01-09] MEDS ORDERED: MORPHINE SULFATE 2 MG/ML 1ML SYG ONE ×2 (00:04→13:11)
[2020-01-09 00:14] LABS: BILIRUBIN,TOTAL 0.4 mg/dL (0.2-1.0); CREATININE 1.4 mg/dL (0.5-1.5)
[2020-01-09 00:15] LABS: ALBUMIN 3.9 g/dL (3.5-5.0); TOTAL PROTEIN, SERUM 7.8 g/dL (6.0-8.3)
[2020-01-09 00:33] LABS: BASOPHILS % (AUTO) 0.4 % (0.0-5.0); EOSINOPHILS % (AUTO) 3.5 % (0.0-8.0); HEMATOCRIT 38.3 % (42-54); LYMPHOCYTES % (AUTO) 19.7 % (21.0-51.0); MEAN CORPUSCULAR HEMOGLOBIN 26.4 pg (27.0-33.0); MEAN CORPUSCULAR HGB CONC 32.1 g/dL (32.0-36.0); MEAN CORPUSCULAR VOLUME 82.2 fL (79-99); MONOCYTES % (AUTO) 9.1 % (3.0-13.0); NEUTROPHILS % (AUTO) 66.8 % (40.0-77.0); PLATELET COUNT (AUTO) 277 K/uL (130-400); RED BLOOD CELL COUNT(AUTO) 4.66 MIL/uL (4.50-6.20); RED CELL DISTRIBUTION WIDTH 14.2 % (11.0-15.5); WHITE BLOOD COUNT (AUTO) 13.5 K/uL (4.8-10.8)
[2020-01-09] MEDS ORDERED: MORPHINE SULFATE 4 MG/1ML SYG ONE ×2 (03:54→08:30)
[2020-01-09] MEDS: ZOSYN 3.375GM+NS 50ML 50 ML IV SCH ×3 (05:00→19:52)
[2020-01-09 06:11] LABS: BASOPHILS % (AUTO) 0.4 % (0.0-5.0); EOSINOPHILS % (AUTO) 2.2 % (0.0-8.0); HEMATOCRIT 35.9 % (42-54); LYMPHOCYTES % (AUTO) 17.3 % (21.0-51.0); MEAN CORPUSCULAR HEMOGLOBIN 25.9 pg (27.0-33.0); MEAN CORPUSCULAR HGB CONC 31.5 g/dL (32.0-36.0); MEAN CORPUSCULAR VOLUME 82.2 fL (79-99); MONOCYTES % (AUTO) 8.2 % (3.0-13.0); NEUTROPHILS % (AUTO) 71.4 % (40.0-77.0); PLATELET COUNT (AUTO) 246 K/uL (130-400); RED BLOOD CELL COUNT(AUTO) 4.37 MIL/uL (4.50-6.20); RED CELL DISTRIBUTION WIDTH 14.2 % (11.0-15.5); WHITE BLOOD COUNT (AUTO) 11.2 K/uL (4.8-10.8)
[2020-01-09 06:23] LABS: CREATININE 1.2 mg/dL (0.5-1.5)
[2020-01-09] MEDS ORDERED: COMPOUND IV REFRIGERATED 1 EACH IVSOLN MISC PRN (07:00)
[2020-01-09] MEDS: INSULIN HUMULIN R 100 UNIT/ML 3ML SQ SCH ×4 (07:30→19:30)
[2020-01-09] MEDS ORDERED: FAMOTIDINE 20MG TAB 20 MG TAB ONE (08:16)
[2020-01-09] MEDS ORDERED: ENOXAPARIN SODIUM 30 MG/0.3 ML SQ ONE (08:17)
[2020-01-09] MEDS ORDERED: ENOXAPARIN SODIUM 120 MG/0.8ML SQ ONE (08:18)
[2020-01-09] MEDS: FAMOTIDINE 20MG TAB 20 MG TAB PO SCH ×2 (09:00→19:53)
[2020-01-09] MEDS: VANCOMYCIN 1.5 GM in SODIUM CHLORIDE 0.9% 250 ML IV SCH ×2 (09:00→19:54)
[2020-01-09] MEDS: ENOXAPARIN SODIUM 1 MG/KG SQ SCH ×2 (09:00→19:54)
[2020-01-09] MEDS: ENOXAPARIN SODIUM 120 MG/0.8ML SQ SCH ×2 (09:00→19:53)
[2020-01-09] MEDS: ENOXAPARIN SODIUM 30 MG/0.3 ML SQ SCH ×2 (09:00→19:52)
[2020-01-09] MEDS ORDERED: ZOSYN 3.375GM+NS 50ML 50 ML IV ONE (13:08)
[2020-01-09 17:15] VITALS: BP 147/89
[2020-01-09] MEDS ORDERED: ICOS1CAP PO (17:32)
[2020-01-09] MEDS: MORPHINE SULFATE 2 MG/ML 1ML SYG IV PRN ×2 (17:41→21:45)
--- NOTE | 2020-01-09 17:47 | NUR ---
cm note met with patient and states resides at home with father, pt uses cane for ambulation, has a walker does not currently use,has provider 2hrs daily for adls, father assists with transport. dc plan is back home at time of dc. [facility] to [facility]) but discharged him. on 12/24/19. dc plan is back home. feels safe to return back home. Addendum: 01/09/20 at 1755 by CHINA HENNESSY CM Amended: Links added.
[2020-01-09 20:34] VITALS: BP 146/86
[2020-01-09 23:57] VITALS: BP 135/84
[2020-01-10] MEDS: ZOSYN 3.375GM+NS 50ML 50 ML IV SCH (03:55)
[2020-01-10] MEDS: MORPHINE SULFATE 2 MG/ML 1ML SYG IV PRN ×4 (04:29→20:16)
[2020-01-10 04:44] VITALS: BP 137/82
[2020-01-10] MEDS: INSULIN HUMULIN R 100 UNIT/ML 3ML SQ SCH ×4 (05:29→20:24)
[2020-01-10 05:36] LABS: HEMATOCRIT 36.8 % (42-54); MEAN CORPUSCULAR HEMOGLOBIN 25.7 pg (27.0-33.0); MEAN CORPUSCULAR VOLUME 83.1 fL (79-99); RED BLOOD CELL COUNT(AUTO) 4.43 MIL/uL (4.50-6.20); WHITE BLOOD COUNT (AUTO) 8.3 K/uL (4.8-10.8)
[2020-01-10 06:09] LABS: CARBON DIOXIDE 26 mmol/L (21-32); CHLORIDE 106 mmol/L (101-111); CREATININE 1.1 mg/dL (0.5-1.5); GLOMERULAR FILTR. RATE CALC 80 mL/min (>60); GLUCOSE,RANDOM 156 mg/dL (70-105); PHOSPHORUS 3.3 mg/dL (2.5-4.9); POTASSIUM 4.3 mmol/L (3.5-5.1); SODIUM SERUM 139 mmol/L (136-145); UREA NITROGEN, BLOOD 15 mg/dL (7-18)
[2020-01-10 06:17] LABS: HEMOGLOBIN A1C 8.2 % (4.0-6.0)
[2020-01-10] MEDS: ENOXAPARIN SODIUM 1 MG/KG SQ SCH ×2 (09:00→21:00)
[2020-01-10] MEDS: FAMOTIDINE 20MG TAB 20 MG TAB PO SCH ×2 (09:11→20:16)
[2020-01-10] MEDS: ENOXAPARIN SODIUM 120 MG/0.8ML SQ SCH ×2 (09:11→20:21)
[2020-01-10] MEDS: ENOXAPARIN SODIUM 30 MG/0.3 ML SQ SCH ×2 (09:12→20:20)
[2020-01-10] MEDS: VANCOMYCIN 1.5 GM in SODIUM CHLORIDE 0.9% 250 ML IV SCH ×2 (09:13→20:54)
[2020-01-10 09:18] VITALS: BP 130/76
[2020-01-10] MEDS: CEPHALEXIN 500 MG CAPSULE PO SCH ×2 (11:02→17:56)
[2020-01-10 12:30] VITALS: BP 130/80
[2020-01-10] MEDS: SODIUM CHLORIDE 0.9% 1000ML 1,000 ML IV SCH (14:45)
[2020-01-10 18:21] VITALS: BP 160/93
[2020-01-10 20:36] VITALS: BP 138/74
[2020-01-11 01:28] VITALS: BP 159/83
[2020-01-11] MEDS: CEPHALEXIN 500 MG CAPSULE PO SCH (01:44)
[2020-01-11] MEDS: SODIUM CHLORIDE 0.9% 1000ML 1,000 ML IV SCH (03:29)
[2020-01-11 03:58] VITALS: BP 148/86
[2020-01-11] MEDS ORDERED: VANCOMYCIN 1.25 GM in SODIUM CHLORIDE 0.9% 250 ML IV SCH (06:00)
[2020-01-11] MEDS: INSULIN HUMULIN R 100 UNIT/ML 3ML SQ SCH (06:00)
[2020-01-11 06:06] LABS: BASOPHILS % (AUTO) 0.7 % (0.0-5.0); EOSINOPHILS % (AUTO) 5.8 % (0.0-8.0); LYMPHOCYTES % (AUTO) 35.5 % (21.0-51.0); MEAN CORPUSCULAR HEMOGLOBIN 25.5 pg (27.0-33.0); MEAN CORPUSCULAR HGB CONC 30.9 g/dL (32.0-36.0); MEAN CORPUSCULAR VOLUME 82.5 fL (79-99); MONOCYTES % (AUTO) 9.5 % (3.0-13.0); NEUTROPHILS % (AUTO) 48.1 % (40.0-77.0); PLATELET COUNT (AUTO) 266 K/uL (130-400); RED BLOOD CELL COUNT(AUTO) 4.12 MIL/uL (4.50-6.20); RED CELL DISTRIBUTION WIDTH 13.7 % (11.0-15.5)
[2020-01-11] MEDS: MORPHINE SULFATE 2 MG/ML 1ML SYG IV PRN (06:08)
[2020-01-11 06:16] LABS: CREATININE 0.9 mg/dL (0.5-1.5); POTASSIUM 4.1 mmol/L (3.5-5.1)
[2020-01-11] MEDS ORDERED: CEPH500C2 PO (07:58)
[2020-01-11 08:00] VITALS: BP 175/83
--- NOTE | 2020-01-12 12:10 | NUR ---
Transitional Care - Post Discharge Note Spoke with patient at number listed. As per Mr August, he is doing fine. Patient does state he has some pain to the extremity, but that he is going to call Dr Berg, with whom he followed up with yesterday, so Dr Berg can prescribe some analgesics. Follow up with Dr Smart has been scheduled for January 24, which is the earliest available. No complaints of fevers, chills, N/V/D, sob. Educated patient on extremity elevation and s/s of infection. Addendum: 01/12/20 at 1214 by HUNTER VERDIN Amended: Links added.
== END 2020-01-11 09:02 | disposition home or self-care (01) | DRG 383 ==
LOC: EDH 19:51 → EDHIP 19:52 → 4AH 01-09 17:14 → 3BH 01-11 06:47
PROVIDERS: ADMIT Family Medicine; ATTEND Family Medicine
DX: L03.115 Cellulitis of right lower limb (principal); I70.201 Unspecified atherosclerosis of native arteries of extremities, right leg; I82.511 Chronic embolism and thrombosis of right femoral vein; I10 Essential (primary) hypertension; E87.6 Hypokalemia; E66.01 Morbid (severe) obesity due to excess calories; Z20.828 Contact with and (suspected) exposure to other viral communicable diseases; E11.51 Type 2 diabetes mellitus with diabetic peripheral angiopathy without gangrene; E78.5 Hyperlipidemia, unspecified; Y93.89 Activity, other specified; Y92.89 Other specified places as the place of occurrence of the external cause; Y99.8 Other external cause status; Z68.41 Body mass index [BMI] 40.0-44.9, adult; Z87.891 Personal history of nicotine dependence; Z79.01 Long term (current) use of anticoagulants; Z90.49 Acquired absence of other specified parts of digestive tract; Z88.8 Allergy status to other drugs, medicaments and biological substances; Z88.2 Allergy status to sulfonamides; Z82.5 Family history of asthma and other chronic lower respiratory diseases; Z83.3 Family history of diabetes mellitus; Z82.49 Family history of ischemic heart disease and other diseases of the circulatory system; Z89.421 Acquired absence of other right toe(s); S92.311A Displaced fracture of first metatarsal bone, right foot, initial encounter for closed fracture
CPT/HCPCS: 36415; 71045; 73630; 80048; 80053; 80202; 81001; 82550; 82948; 83036; 83735; 84100; 84145; 84484; 85025; 85027; 85610; 85730; 86140; 87040; 87426; 93971; G0378; J1650; J1815; J2270; J2543; J3370; J7030; J7050; U0003

== ENCOUNTER 2020-01-16 16:45 | Emergency (ER) | payer MEDICAID ==
[~2020-01-16 16:45] MED LIST changes: +CEPH500C2 PO; +ICOS1CAP PO; -LISI-617 PO
[2020-01-16] MEDS ORDERED: SODIUM CHLORIDE 0.9% 1000ML 1,000 ML IV ONE (16:46)
[2020-01-16 17:16] LABS: BASOPHILS % (AUTO) 0.7 % (0.0-5.0); EOSINOPHILS % (AUTO) 4.2 % (0.0-8.0); HEMATOCRIT 38.9 % (42-54); LYMPHOCYTES % (AUTO) 27.4 % (21.0-51.0); MEAN CORPUSCULAR HEMOGLOBIN 25.4 pg (27.0-33.0); MEAN CORPUSCULAR HGB CONC 32.1 g/dL (32.0-36.0); MEAN CORPUSCULAR VOLUME 79.1 fL (79-99); MONOCYTES % (AUTO) 7.1 % (3.0-13.0); PLATELET COUNT (AUTO) 360 K/uL (130-400); RED BLOOD CELL COUNT(AUTO) 4.92 MIL/uL (4.50-6.20); RED CELL DISTRIBUTION WIDTH 13.4 % (11.0-15.5); WHITE BLOOD COUNT (AUTO) 10.5 K/uL (4.8-10.8)
[2020-01-16] MEDS ORDERED: MORPHINE SULFATE 2 MG/ML 1ML SYG ONE ×2 (17:16→18:52)
[2020-01-16 17:27] LABS: CREATININE 1.4 mg/dL (0.5-1.5)
[2020-01-16 17:34] LABS: ALBUMIN 3.7 g/dL (3.5-5.0); BILIRUBIN,TOTAL 0.3 mg/dL (0.2-1.0); TOTAL PROTEIN, SERUM 8.4 g/dL (6.0-8.3)
== END 2020-01-16 19:04 | disposition home or self-care (01) ==
LOC: EDH 16:45
DX: M79.671 Pain in right foot (principal); M79.674 Pain in right toe(s); I10 Essential (primary) hypertension; E11.9 Type 2 diabetes mellitus without complications; E78.5 Hyperlipidemia, unspecified; Z86.718 Personal history of other venous thrombosis and embolism; Z88.1 Allergy status to other antibiotic agents; Z98.890 Other specified postprocedural states
CPT/HCPCS: 36415; 73630; 80053; 84145; 85025; 96361; 96374; 96376; 99284; J7030

== ENCOUNTER 2020-01-30 14:18 | Emergency (ER) | payer MEDICAID ==
[2020-01-30 18:07] LABS: BASOPHILS % (AUTO) 0.6 % (0.0-5.0); EOSINOPHILS % (AUTO) 5.2 % (0.0-8.0); HEMATOCRIT 37.8 % (42-54); LYMPHOCYTES % (AUTO) 28.1 % (21.0-51.0); MEAN CORPUSCULAR HEMOGLOBIN 25.7 pg (27.0-33.0); MEAN CORPUSCULAR VOLUME 80.3 fL (79-99); MONOCYTES % (AUTO) 8.5 % (3.0-13.0); NEUTROPHILS % (AUTO) 56.7 % (40.0-77.0); PLATELET COUNT (AUTO) 295 K/uL (130-400); RED BLOOD CELL COUNT(AUTO) 4.71 MIL/uL (4.50-6.20); RED CELL DISTRIBUTION WIDTH 13.7 % (11.0-15.5); WHITE BLOOD COUNT (AUTO) 9.4 K/uL (4.8-10.8)
[2020-01-30 18:19] LABS: CREATININE 1.1 mg/dL (0.5-1.5); POTASSIUM 3.9 mmol/L (3.5-5.1)
[2020-01-30] MEDS ORDERED: ONDANSETRON HCL 4 MG/2 ML VIAL ONE (18:21)
[2020-01-30] MEDS ORDERED: MORPHINE SULFATE 4 MG/1ML SYG ONE (18:22)
[2020-01-30 18:25] LABS: ALBUMIN 3.6 g/dL (3.5-5.0); BILIRUBIN,TOTAL 0.4 mg/dL (0.2-1.0); TOTAL PROTEIN, SERUM 7.7 g/dL (6.0-8.3)
[2020-01-30 18:32] LABS: INR 1.05 (0.85-1.15); PROTHROMBIN TIME 11.2 SEC (9.6-11.6)
[2020-01-30] MEDS ORDERED: DOXYCYCLINE HYCLATE 100 MG TABLET PO ONE (18:49)
== END 2020-01-30 20:21 | disposition home or self-care (01) ==
LOC: EDH 14:18
DX: B34.9 Viral infection, unspecified (principal); E11.9 Type 2 diabetes mellitus without complications; L03.115 Cellulitis of right lower limb; Z20.828 Contact with and (suspected) exposure to other viral communicable diseases; E78.5 Hyperlipidemia, unspecified; I10 Essential (primary) hypertension; Z79.899 Other long term (current) drug therapy; Z88.2 Allergy status to sulfonamides
CPT/HCPCS: 36415; 71045; 73630; 80053; 82550; 83605; 84484; 85025; 85610; 85730; 87040; 87426; 87804 ×2; 93005; 96374; 96375; 99285; J2270; J2405; U0003

== ENCOUNTER 2020-02-05 19:16 | Inpatient (IN) | payer MEDICAID ==
[~2020-02-05] VITALS: Ht 190.5 cm; Wt 138.8 kg
[2020-02-05 20:10] LABS: BASOPHILS % (AUTO) 0.1 % (0.0-5.0); EOSINOPHILS % (AUTO) 0.3 % (0.0-8.0); HEMATOCRIT 40.1 % (42-54); LYMPHOCYTES % (AUTO) 14.8 % (21.0-51.0); MEAN CORPUSCULAR HEMOGLOBIN 25.2 pg (27.0-33.0); MEAN CORPUSCULAR HGB CONC 32.4 g/dL (32.0-36.0); MEAN CORPUSCULAR VOLUME 77.7 fL (79-99); MONOCYTES % (AUTO) 7.9 % (3.0-13.0); NEUTROPHILS % (AUTO) 76.4 % (40.0-77.0); PLATELET COUNT (AUTO) 216 K/uL (130-400); RED BLOOD CELL COUNT(AUTO) 5.16 MIL/uL (4.50-6.20); RED CELL DISTRIBUTION WIDTH 14.2 % (11.0-15.5); WHITE BLOOD COUNT (AUTO) 7.7 K/uL (4.8-10.8)
[2020-02-05] MEDS ORDERED: ACETAMINOPHEN 500 MG TABLET ONE (20:26)
[2020-02-05] MEDS ORDERED: ONDANSETRON 4MG INJ ONE (20:26)
[2020-02-05 20:33] LABS: CREATININE 1.6 mg/dL (0.5-1.5); POTASSIUM 4.5 mmol/L (3.5-5.1)
[2020-02-05 20:36] LABS: INR 1.06 (0.85-1.15); PROTHROMBIN TIME 11.3 SEC (9.6-11.6)
[2020-02-05 20:37] LABS: PARTIAL THROMBOPLASTIN TIME 31.9 SEC (26.3-35.5)
[2020-02-05 20:40] LABS: BILIRUBIN,TOTAL 0.5 mg/dL (0.2-1.0); TOTAL PROTEIN, SERUM 8.2 g/dL (6.0-8.3)
[2020-02-05 20:54] LABS: APPEARANCE,URINE Clear (CLEAR); BILIRUBIN,URINE Negative (NEGATIVE); COLOR,URINE Yellow (YELLOW); GLUCOSE, URINE (UA) >=1000 mg/dL (NEGATIVE); KETONES,URINE Trace mg/dL (NEGATIVE); LEUKOCYTE ESTERASE ,URINE Negative (NEGATIVE); NITRATE,URINE Negative (NEGATIVE); OCCULT BLOOD,URINE Trace (NEGATIVE); PROTEIN,URINE POS 2+ mg/dL (NEGATIVE); UROBILINOGEN,URINE 0.2 mg/dL (0.2-1.0)
[2020-02-05] MEDS ORDERED: ASPIRIN 325 MG TABLET ONE (20:59)
[2020-02-05] MEDS ORDERED: CEFTRIAXONE 1G VIAL ONE (21:01)
[2020-02-05] MEDS ORDERED: INSULIN HUMULIN R 100 UNIT/ML 3ML ONE ×2 (21:01→23:18)
[2020-02-05] MEDS ORDERED: AZITHROMYCIN 250 MG TABLET PO ONE (21:01)
[2020-02-05 21:10] LABS: BACTERIA,URINE Few /HPF (None Seen); MUCUS,URINE Few LPF (None Seen); SQUAMOUS EPITHELIAL CELL,UR Moderate /HPF (0-2)
[2020-02-05] MEDS ORDERED: PHARMACY COMMUNICATION**REMDESIVIR ORDER MISC SCH (22:30)
[2020-02-05] MEDS ORDERED: LACTULOSE 20 GM/30 ML UDCUP PO PRN (22:30)
[2020-02-05] MEDS ORDERED: MORPHINE 2 MG SYG IV PRN (22:30)
[2020-02-05] MEDS ORDERED: ERGOCALCIFEROL (VITAMIN D2) 50,000 UNIT CAPSULE PO ONE (22:30)
[2020-02-05] MEDS ORDERED: GLUCAGON 1MG KIT 1 MG ML IM PRN (22:30)
[2020-02-05] MEDS ORDERED: ONDANSETRON 4MG INJ IV PRN (22:30)
[2020-02-05] MEDS ORDERED: DEXTROSE 50%-WATER 50 ML DISP.SYRIN IV PRN (22:30)
[2020-02-05] MEDS ORDERED: ACETAMINOPHEN 325 MG TAB PO PRN (22:30)
[2020-02-05 22:52] LABS: ABG HCO3 23.3 mmol/L (21.0-28.0); ABG OXYGEN SATURATION 97.9 % (95.0-99.0); ABG PCO2 38 mmHg (35-48)
[2020-02-05 23:10] LABS: CRP QUANTITATIVE 20.9 mg/L (0.00-9.0)
[2020-02-05] MEDS ORDERED: ALBUTEROL INHALER 90MCG/INH IH PRN (23:30)
[2020-02-06 05:14] LABS: BASOPHILS % (AUTO) 0.5 % (0.0-5.0); EOSINOPHILS % (AUTO) 0.5 % (0.0-8.0); HEMATOCRIT 37.3 % (42-54); LYMPHOCYTES % (AUTO) 31.1 % (21.0-51.0); MEAN CORPUSCULAR HEMOGLOBIN 25.4 pg (27.0-33.0); MEAN CORPUSCULAR HGB CONC 31.9 g/dL (32.0-36.0); MEAN CORPUSCULAR VOLUME 79.7 fL (79-99); NEUTROPHILS % (AUTO) 56.4 % (40.0-77.0); PLATELET COUNT (AUTO) 181 K/uL (130-400); RED BLOOD CELL COUNT(AUTO) 4.68 MIL/uL (4.50-6.20); RED CELL DISTRIBUTION WIDTH 14.5 % (11.0-15.5)
[2020-02-06 05:59] LABS: ALBUMIN 3.3 g/dL (3.5-5.0); BILIRUBIN,TOTAL 0.3 mg/dL (0.2-1.0); CREATININE 1.4 mg/dL (0.5-1.5); CRP QUANTITATIVE 22.3 mg/L (0.00-9.0); POTASSIUM 3.9 mmol/L (3.5-5.1); TOTAL PROTEIN, SERUM 7.8 g/dL (6.0-8.3)
[2020-02-06] MEDS ORDERED: FAMOTIDINE 20MG VIAL IV ONE ×2 (08:58→21:32)
[2020-02-06] MEDS ORDERED: ENOXAPARIN SODIUM 60 MG/0.6 ML SQ ONE (08:58)
[2020-02-06] MEDS ORDERED: ZINC SULFATE 220 CAPSULE ONE (08:58)
[2020-02-06] MEDS: ASCORBIC ACID 500 MG TAB PO SCH (09:00)
[2020-02-06] MEDS: ZINC SULFATE 220 CAPSULE PO SCH (09:00)
[2020-02-06] MEDS ORDERED: ENOXAPARIN SODIUM 40 MG/0.4 ML SYRINGE SQ SCH (09:00)
[2020-02-06] MEDS ORDERED: ONDANSETRON 4MG INJ ONE ×3 (09:05→18:00)
[2020-02-06] MEDS ORDERED: INSULIN HUMULIN R 100 UNIT/ML 3ML ONE ×2 (09:25→22:46)
[2020-02-06] MEDS ORDERED: ASCORBIC ACID 500 MG TAB ONE (12:37)
[2020-02-06] MEDS ORDERED: MORPHINE 2 MG SYG ONE ×3 (12:48→23:08)
[2020-02-06] MEDS ORDERED: CEFTRIAXONE 1G VIAL ONE (21:31)
[2020-02-06] MEDS ORDERED: AZITHROMYCIN 500MG+NS 250ML 250 ML IV ONE (21:31)
[2020-02-07] MEDS ORDERED: ONDANSETRON 4MG INJ ONE (01:45)
[2020-02-07 04:37] LABS: BASOPHILS % (AUTO) 0.2 % (0.0-5.0); HEMATOCRIT 36.3 % (42-54); LYMPHOCYTES % (AUTO) 36.2 % (21.0-51.0); MEAN CORPUSCULAR HEMOGLOBIN 25.2 pg (27.0-33.0); MEAN CORPUSCULAR HGB CONC 31.7 g/dL (32.0-36.0); MEAN CORPUSCULAR VOLUME 79.6 fL (79-99); MONOCYTES % (AUTO) 9.4 % (3.0-13.0); NEUTROPHILS % (AUTO) 53.8 % (40.0-77.0); PLATELET COUNT (AUTO) 181 K/uL (130-400); RED BLOOD CELL COUNT(AUTO) 4.56 MIL/uL (4.50-6.20); RED CELL DISTRIBUTION WIDTH 14.5 % (11.0-15.5); WHITE BLOOD COUNT (AUTO) 5.1 K/uL (4.8-10.8)
[2020-02-07 04:59] LABS: BILIRUBIN,TOTAL 0.3 mg/dL (0.2-1.0); CREATININE 1.5 mg/dL (0.5-1.5); CRP QUANTITATIVE 21.5 mg/L (0.00-9.0); POTASSIUM 4.1 mmol/L (3.5-5.1); TOTAL PROTEIN, SERUM 7.3 g/dL (6.0-8.3)
[2020-02-07] MEDS: ZINC SULFATE 220 CAPSULE PO SCH (09:00)
[2020-02-07] MEDS ORDERED: HYDROCODONE/ACETAMINOPHEN 5/325 MG TAB PO PRN (09:00)
[2020-02-07] MEDS: EZETIMIBE 10 MG TAB PO SCH (09:00)
[2020-02-07] MEDS: ASCORBIC ACID 500 MG TAB PO SCH (09:00)
[2020-02-07] MEDS ORDERED: MORPHINE 2 MG SYG IV PRN (09:00)
[2020-02-07] MEDS: HYDROCHLOROTHIAZIDE 25 MG TABLET PO SCH (09:00)
[2020-02-07] MEDS ORDERED: ASCORBIC ACID 500 MG TAB ONE (09:42)
[2020-02-07] MEDS ORDERED: APIXABAN 2.5 MG TABLET PO ONE (09:42)
[2020-02-07] MEDS ORDERED: ENOXAPARIN SODIUM 40 MG/0.4 ML SYRINGE SQ ONE (09:43)
[2020-02-07] MEDS ORDERED: ZINC SULFATE 220 CAPSULE ONE (09:43)
[2020-02-07] MEDS ORDERED: FAMOTIDINE 20MG VIAL IV ONE (09:44)
[2020-02-07] MEDS ORDERED: HYDROCHLOROTHIAZIDE 25 MG TABLET ONE (09:44)
[2020-02-07] MEDS ORDERED: INSULIN HUMULIN 70/30 100 UNIT/ML 3ML SQ ONE (09:45)
[2020-02-07] MEDS ORDERED: INSULIN NPH 100 UNIT/ML 3ML SQ ONE (10:02)
[2020-02-07] MEDS ORDERED: ACETAMINOPHEN 325 MG TAB ONE (11:30)
[2020-02-07] MEDS: INSULIN LISPRO 100 UNIT/ML 3ML SQ SCH ×2 (12:00→17:00)
[2020-02-07] MEDS ORDERED: INSULIN HUMULIN R 100 UNIT/ML 3ML ONE ×2 (12:46→18:38)
[2020-02-07] MEDS ORDERED: MORPHINE 2 MG SYG ONE (20:09)
[2020-02-07 22:40] VITALS: BP 155/83
[2020-02-08] VITALS: BP 137/72
[2020-02-08] MEDS: APIXABAN 5 MG TABLET PO SCH ×3 (00:45→22:52)
[2020-02-08] MEDS: ATORVASTATIN 40 MG TABLET PO SCH ×2 (00:46→22:53)
[2020-02-08] MEDS: FAMOTIDINE 20MG VIAL IV SCH ×3 (00:47→22:57)
[2020-02-08] MEDS: CEFTRIAXONE 1G VIAL IV SCH ×2 (00:48→22:57)
[2020-02-08] MEDS: INSULIN GLARGINE 100 UNITS/ML 10 ML VIAL SQ SCH ×2 (00:50→23:00)
[2020-02-08] MEDS: INSULIN HUMULIN R 100 UNIT/ML 3ML SQ SCH ×4 (00:52→16:27)
[2020-02-08] MEDS: AZITHROMYCIN 500MG+NS 250ML 250 ML IV SCH ×2 (00:55→22:57)
[2020-02-08 04:00] VITALS: BP 131/80
[2020-02-08 05:00] LABS: BASOPHILS % (AUTO) 0.2 % (0.0-5.0); EOSINOPHILS % (AUTO) 0.2 % (0.0-8.0); HEMATOCRIT 35.1 % (42-54); LYMPHOCYTES % (AUTO) 25.2 % (21.0-51.0); MEAN CORPUSCULAR HEMOGLOBIN 25.2 pg (27.0-33.0); MEAN CORPUSCULAR HGB CONC 31.6 g/dL (32.0-36.0); MEAN CORPUSCULAR VOLUME 79.8 fL (79-99); MONOCYTES % (AUTO) 7.3 % (3.0-13.0); NEUTROPHILS % (AUTO) 66.6 % (40.0-77.0); PLATELET COUNT (AUTO) 177 K/uL (130-400); RED CELL DISTRIBUTION WIDTH 14.2 % (11.0-15.5); WHITE BLOOD COUNT (AUTO) 5.5 K/uL (4.8-10.8)
[2020-02-08 05:03] LABS: HEMOGLOBIN A1C 9.1 % (4.0-6.0)
[2020-02-08 05:30] LABS: BILIRUBIN,TOTAL 0.3 mg/dL (0.2-1.0); CREATININE 1.3 mg/dL (0.5-1.5); CRP QUANTITATIVE 29.8 mg/L (0.00-9.0); TOTAL PROTEIN, SERUM 7.4 g/dL (6.0-8.3)
[2020-02-08] MEDS: EZETIMIBE 10 MG TAB PO SCH (07:57)
[2020-02-08] MEDS: HYDROCHLOROTHIAZIDE 25 MG TABLET PO SCH (07:57)
[2020-02-08] MEDS: ASCORBIC ACID 500 MG TAB PO SCH (07:58)
[2020-02-08] MEDS: ZINC SULFATE 220 CAPSULE PO SCH (07:58)
[2020-02-08 08:00] VITALS: BP 125/78
[2020-02-08] MEDS: INSULIN LISPRO 100 UNIT/ML 3ML SQ SCH ×3 (08:00→16:26)
[2020-02-08] MEDS ORDERED: GABAPENTIN 100 MG CAPSULE ONE (09:08)
[2020-02-08 11:57] VITALS: BP 130/75
[2020-02-08] MEDS: GABAPENTIN 100 MG CAPSULE PO SCH ×2 (14:06→22:53)
[2020-02-08] MEDS ORDERED: COMPOUND IV REFRIGERATED 1 EACH IVSOLN MISC PRN (15:00)
[2020-02-08] MEDS ORDERED: REMDESIVIR (EUA) 520 200 MG in 0.9% NACL 250ML 250 ML IV ONE (15:00)
[2020-02-08 16:00] VITALS: BP 161/75
[2020-02-08 19:32] VITALS: BP 125/84
[2020-02-08] MEDS: ACETAMINOPHEN 325 MG TAB PO PRN (22:55)
[2020-02-08] MEDS ORDERED: ERGOCALCIFEROL (VITAMIN D2) 50,000 UNIT CAPSULE PO ONE (23:00)
[2020-02-09] VITALS (7 sets, daily range): BP systolic 110–144; BP diastolic 53–87
[2020-02-09] MEDS ORDERED: GLUCAGON 1MG KIT 1 MG ML IM PRN
[2020-02-09] MEDS ORDERED: DEXTROSE 50%-WATER 50 ML DISP.SYRIN IV PRN
[2020-02-09 05:27] LABS: BASOPHILS % (AUTO) 0.2 % (0.0-5.0); EOSINOPHILS % (AUTO) 0.3 % (0.0-8.0); HEMATOCRIT 35.2 % (42-54); LYMPHOCYTES % (AUTO) 33.6 % (21.0-51.0); MEAN CORPUSCULAR HEMOGLOBIN 24.7 pg (27.0-33.0); MEAN CORPUSCULAR HGB CONC 31.3 g/dL (32.0-36.0); MEAN CORPUSCULAR VOLUME 79.1 fL (79-99); MONOCYTES % (AUTO) 5.9 % (3.0-13.0); NEUTROPHILS % (AUTO) 59.4 % (40.0-77.0); PLATELET COUNT (AUTO) 180 K/uL (130-400); RED BLOOD CELL COUNT(AUTO) 4.45 MIL/uL (4.50-6.20); RED CELL DISTRIBUTION WIDTH 14.2 % (11.0-15.5); WHITE BLOOD COUNT (AUTO) 6.3 K/uL (4.8-10.8)
[2020-02-09 05:51] LABS: ALBUMIN 2.9 g/dL (3.5-5.0); BILIRUBIN,DIRECT 0.1 mg/dL (0.0-0.3); BILIRUBIN,TOTAL 0.3 mg/dL (0.2-1.0); CREATININE 1.3 mg/dL (0.5-1.5); CRP QUANTITATIVE 59.2 mg/L (0.00-9.0); POTASSIUM 4.1 mmol/L (3.5-5.1); TOTAL PROTEIN, SERUM 7.4 g/dL (6.0-8.3)
[2020-02-09] MEDS ORDERED: ERGOCALCIFEROL (VITAMIN D2) 50,000 UNIT CAPSULE PO SCH (06:30)
[2020-02-09] MEDS: INSULIN HUMULIN R 100 UNIT/ML 3ML SQ SCH ×5 (06:49→22:58)
[2020-02-09] MEDS: PHARMACY COMMUNICATION MISC SCH (07:45)
[2020-02-09] MEDS ORDERED: ZINC SULFATE 220 CAPSULE PO SCH (09:00)
[2020-02-09] MEDS ORDERED: ENOXAPARIN SODIUM 60 MG/0.6 ML SQ SCH (09:00)
[2020-02-09] MEDS ORDERED: ENOXAPARIN SODIUM 80 MG/0.8 ML SQ SCH ×2 (09:00→21:00)
[2020-02-09] MEDS: ASCORBIC ACID 500 MG TAB PO SCH (09:27)
[2020-02-09] MEDS: ZINC SULFATE 220 CAPSULE PO SCH (09:28)
[2020-02-09] MEDS: HYDROCHLOROTHIAZIDE 25 MG TABLET PO SCH (09:28)
[2020-02-09] MEDS: EZETIMIBE 10 MG TAB PO SCH (09:28)
[2020-02-09] MEDS: GABAPENTIN 100 MG CAPSULE PO SCH ×3 (09:28→22:54)
[2020-02-09] MEDS: FAMOTIDINE 20MG VIAL IV SCH ×2 (09:30→22:55)
[2020-02-09] MEDS ORDERED: IBUPROFEN 800 MG TAB PO PRN (09:30)
[2020-02-09] MEDS: DEXAMETHASONE SOD PHOSPHATE 4 MG/ML 1ML VIAL IVP SCH (09:30)
[2020-02-09] MEDS: INSULIN LISPRO 100 UNIT/ML 3ML SQ SCH ×3 (09:33→16:29)
[2020-02-09] MEDS ORDERED: APIXABAN 5 MG TABLET PO ONE (10:44)
[2020-02-09] MEDS: REMDESIVIR (EUA) 520 100 MG in 0.9% NACL 250ML 250 ML IV SCH (15:07)
[2020-02-09] MEDS ORDERED: 0.9% NACL 250ML 250 ML IV ONE (15:38)
[2020-02-09] MEDS ORDERED: 0.9% NACL 500ML IV.SOLN 500 ML IV ONE (22:24)
[2020-02-09] MEDS: APIXABAN 5 MG TABLET PO SCH (22:55)
[2020-02-09] MEDS: ATORVASTATIN 40 MG TABLET PO SCH (22:56)
[2020-02-09] MEDS: INSULIN GLARGINE 100 UNITS/ML 10 ML VIAL SQ SCH (23:00)
[2020-02-09] MEDS: ACETAMINOPHEN 325 MG TAB PO PRN (23:04)
[2020-02-10 03:55] VITALS: BP 145/80
[2020-02-10] MEDS: PHARMACY COMMUNICATION MISC SCH (06:00)
[2020-02-10 06:03] LABS: BASOPHILS % (AUTO) 0.2 % (0.0-5.0); EOSINOPHILS % (AUTO) 0.2 % (0.0-8.0); HEMATOCRIT 35.6 % (42-54); LYMPHOCYTES % (AUTO) 26.8 % (21.0-51.0); MEAN CORPUSCULAR HEMOGLOBIN 24.8 pg (27.0-33.0); MEAN CORPUSCULAR VOLUME 77.6 fL (79-99); MONOCYTES % (AUTO) 9.1 % (3.0-13.0); NEUTROPHILS % (AUTO) 63.1 % (40.0-77.0); PLATELET COUNT (AUTO) 213 K/uL (130-400); RED BLOOD CELL COUNT(AUTO) 4.59 MIL/uL (4.50-6.20); RED CELL DISTRIBUTION WIDTH 13.7 % (11.0-15.5); WHITE BLOOD COUNT (AUTO) 4.9 K/uL (4.8-10.8)
[2020-02-10 06:31] LABS: BILIRUBIN,DIRECT 0.1 mg/dL (0.0-0.3); BILIRUBIN,TOTAL 0.3 mg/dL (0.2-1.0); CREATININE 1.1 mg/dL (0.5-1.5); CRP QUANTITATIVE 60.1 mg/L (0.00-9.0); TOTAL PROTEIN, SERUM 7.8 g/dL (6.0-8.3)
[2020-02-10 08:00] VITALS: BP 143/85
[2020-02-10] MEDS: EZETIMIBE 10 MG TAB PO SCH (08:28)
[2020-02-10] MEDS: HYDROCHLOROTHIAZIDE 25 MG TABLET PO SCH (08:28)
[2020-02-10] MEDS: DEXAMETHASONE SOD PHOSPHATE 4 MG/ML 1ML VIAL IVP SCH (08:29)
[2020-02-10] MEDS: ZINC SULFATE 220 CAPSULE PO SCH (08:29)
[2020-02-10] MEDS: APIXABAN 5 MG TABLET PO SCH ×2 (08:29→22:22)
[2020-02-10] MEDS: GABAPENTIN 100 MG CAPSULE PO SCH ×3 (08:29→22:22)
[2020-02-10] MEDS: FAMOTIDINE 20MG VIAL IV SCH ×2 (08:29→22:21)
[2020-02-10] MEDS: ASCORBIC ACID 500 MG TAB PO SCH (08:29)
[2020-02-10] MEDS: INSULIN HUMULIN R 100 UNIT/ML 3ML SQ SCH ×4 (08:39→23:53)
[2020-02-10] MEDS ORDERED: INSULIN LISPRO 100 UNIT/ML 3ML SQ SCH ×2 (11:30→12:00)
[2020-02-10 11:51] VITALS: BP 142/89
[2020-02-10] MEDS ORDERED: 0.9%NACL 50ML 50 ML IV ONE (15:10)
[2020-02-10] MEDS: REMDESIVIR (EUA) 520 100 MG in 0.9% NACL 250ML 250 ML IV SCH (15:12)
[2020-02-10 16:00] VITALS: BP 141/85
[2020-02-10] MEDS: INSULIN LISPRO 100 UNIT/ML 3ML SQ SCH (17:15)
[2020-02-10 20:30] VITALS: BP 149/94
[2020-02-10] MEDS: ATORVASTATIN 40 MG TABLET PO SCH (22:22)
[2020-02-10 23:13] LABS: EOSINOPHILS % (AUTO) 0.1 % (0.0-8.0); HEMATOCRIT 36.2 % (42-54); LYMPHOCYTES % (AUTO) 18.1 % (21.0-51.0); MEAN CORPUSCULAR HEMOGLOBIN 24.7 pg (27.0-33.0); MEAN CORPUSCULAR HGB CONC 31.8 g/dL (32.0-36.0); MEAN CORPUSCULAR VOLUME 77.8 fL (79-99); MONOCYTES % (AUTO) 6.7 % (3.0-13.0); NEUTROPHILS % (AUTO) 74.7 % (40.0-77.0); PLATELET COUNT (AUTO) 257 K/uL (130-400); RED BLOOD CELL COUNT(AUTO) 4.65 MIL/uL (4.50-6.20); RED CELL DISTRIBUTION WIDTH 13.8 % (11.0-15.5); WHITE BLOOD COUNT (AUTO) 7.4 K/uL (4.8-10.8)
[2020-02-10 23:46] VITALS: BP 154/92
[2020-02-10] MEDS: INSULIN GLARGINE 100 UNITS/ML 10 ML VIAL SQ SCH (23:55)
[2020-02-11] MEDS: ACETAMINOPHEN 325 MG TAB PO PRN (00:26)
[2020-02-11 03:47] VITALS: BP 155/88
[2020-02-11 06:10] LABS: BASOPHILS % (AUTO) 0.1 % (0.0-5.0); EOSINOPHILS % (AUTO) 0.3 % (0.0-8.0); HEMATOCRIT 36.7 % (42-54); LYMPHOCYTES % (AUTO) 24.1 % (21.0-51.0); MEAN CORPUSCULAR HEMOGLOBIN 24.8 pg (27.0-33.0); MEAN CORPUSCULAR HGB CONC 31.6 g/dL (32.0-36.0); MEAN CORPUSCULAR VOLUME 78.4 fL (79-99); NEUTROPHILS % (AUTO) 68.1 % (40.0-77.0); PLATELET COUNT (AUTO) 274 K/uL (130-400); RED BLOOD CELL COUNT(AUTO) 4.68 MIL/uL (4.50-6.20); RED CELL DISTRIBUTION WIDTH 13.5 % (11.0-15.5); WHITE BLOOD COUNT (AUTO) 7.1 K/uL (4.8-10.8)
[2020-02-11 06:38] LABS: ALBUMIN 2.9 g/dL (3.5-5.0); BILIRUBIN,TOTAL 0.3 mg/dL (0.2-1.0); CREATININE 1.1 mg/dL (0.5-1.5); CRP QUANTITATIVE 27.2 mg/L (0.00-9.0); POTASSIUM 3.8 mmol/L (3.5-5.1); TOTAL PROTEIN, SERUM 7.5 g/dL (6.0-8.3)
[2020-02-11] MEDS: INSULIN HUMULIN R 100 UNIT/ML 3ML SQ SCH (06:57)
[2020-02-11 08:28] VITALS: BP 145/81
[2020-02-11] MEDS: INSULIN LISPRO 100 UNIT/ML 3ML SQ SCH ×5 (09:09→16:17)
[2020-02-11] MEDS: ZINC SULFATE 220 CAPSULE PO SCH (09:20)
[2020-02-11] MEDS: HYDROCHLOROTHIAZIDE 25 MG TABLET PO SCH (09:20)
[2020-02-11] MEDS: ASCORBIC ACID 500 MG TAB PO SCH (09:20)
[2020-02-11] MEDS: APIXABAN 5 MG TABLET PO SCH (09:20)
[2020-02-11] MEDS: EZETIMIBE 10 MG TAB PO SCH (09:20)
[2020-02-11] MEDS: GABAPENTIN 100 MG CAPSULE PO SCH ×2 (09:21→15:01)
[2020-02-11] MEDS: DEXAMETHASONE SOD PHOSPHATE 4 MG/ML 1ML VIAL IVP SCH (09:21)
[2020-02-11] MEDS: FAMOTIDINE 20MG VIAL IV SCH (09:22)
[2020-02-11 10:34] LABS: BILIRUBIN,DIRECT 0.1 mg/dL (0.0-0.3); BILIRUBIN,TOTAL 0.3 mg/dL (0.2-1.0); TOTAL PROTEIN, SERUM 7.7 g/dL (6.0-8.3)
[2020-02-11 12:18] VITALS: BP 137/79
[2020-02-11] MEDS: REMDESIVIR (EUA) 520 100 MG in 0.9% NACL 250ML 250 ML IV SCH (15:01)
[2020-02-11 16:26] VITALS: BP 135/89
[2020-02-11] MEDS ORDERED: INSLAN SQ (17:06)
[2020-02-11] MEDS ORDERED: INSU100C6 SQ (17:06)
[2020-02-11] MEDS ORDERED: INSULIN GLARGINE 100 UNITS/ML 10 ML VIAL SQ SCH (21:00)
[2020-07-24] MEDS ORDERED: CLIN-141 PO (06:46)
== END 2020-02-11 19:05 | disposition home or self-care (01) | DRG 137 ==
LOC: EDH 19:16 → EDHIP 19:17 → 2DH 02-07 20:35
PROVIDERS: ADMIT Family Medicine; ATTEND Family Medicine
PROC: XW033E5 Introduction of Remdesivir Anti-infective into Peripheral Vein, Percutaneous Approach, New Technology Group 5 (ICD-10-PCS; 2020-02-08)
PROC: XW13325 Transfusion of Convalescent Plasma (Nonautologous) into Peripheral Vein, Percutaneous Approach, New Technology Group 5 (ICD-10-PCS; principal; 2020-02-09)
DX: U07.1 COVID-19 (principal); J12.82 Pneumonia due to coronavirus disease 2019; N12 Tubulo-interstitial nephritis, not specified as acute or chronic; N17.9 Acute kidney failure, unspecified; J96.01 Acute respiratory failure with hypoxia; E78.5 Hyperlipidemia, unspecified; I10 Essential (primary) hypertension; E11.51 Type 2 diabetes mellitus with diabetic peripheral angiopathy without gangrene; E66.9 Obesity, unspecified; Z68.38 Body mass index [BMI] 38.0-38.9, adult; Z79.01 Long term (current) use of anticoagulants; Z86.718 Personal history of other venous thrombosis and embolism; Z87.891 Personal history of nicotine dependence; Z88.2 Allergy status to sulfonamides; Z88.8 Allergy status to other drugs, medicaments and biological substances; Z89.431 Acquired absence of right foot; Z90.49 Acquired absence of other specified parts of digestive tract; Z83.3 Family history of diabetes mellitus; Z82.5 Family history of asthma and other chronic lower respiratory diseases; Z82.49 Family history of ischemic heart disease and other diseases of the circulatory system; D68.69 Other thrombophilia
CPT/HCPCS: 36415; 36430; 36600; 71045; 74176; 80053; 80061; 80076; 81001; 82010; 82248; 82728; 82803; 82948; 83036; 83605; 83615; 84145; 84484; 85025; 85378; 85610; 85730; 86140; 86850; 86900; 86901; 86927; 87040; 87077; 87088; 87186; 87426; 93970; 99291; G0378; J0456; J0696; J1100; J1650; J1815; J2405; J3490; J7040; J7050

== ENCOUNTER 2020-05-12 21:11 | Emergency (ER) | payer MEDICAID ==
[~2020-05-12 21:11] MED LIST changes: -CEPH500C2 PO
[2020-05-12] MEDS ORDERED: KETOROLAC TROMETHAMINE 30MG/ML ONE (21:40)
[2020-05-12] MEDS ORDERED: AMOXICILLIN/POTASSIUM CLAV 875-125 TABLET PO ONE (21:40)
== END 2020-05-12 22:39 | disposition home or self-care (01) ==
LOC: EDH 21:11
DX: L03.113 Cellulitis of right upper limb (principal); Z88.2 Allergy status to sulfonamides; W55.01XA Bitten by cat, initial encounter; Y93.89 Activity, other specified; Y92.098 Other place in other non-institutional residence as the place of occurrence of the external cause; Y99.8 Other external cause status
CPT/HCPCS: 96372; 99283; J1885

== ENCOUNTER 2020-07-24 06:08 | Emergency (ER) | payer MEDICARE ==
[~2020-07-24] VITALS: Ht 188 cm; Wt 142.9 kg
[2020-07-24 06:16] VITALS: BP 152/90
[2020-07-24] MEDS ORDERED: CLINDAMYCIN HCL 150 MG CAP PO SCH (06:45)
[2020-07-24] MEDS ORDERED: CLIN300C10 PO (06:46)
== END 2020-07-24 07:07 | disposition home or self-care (01) ==
LOC: EDH 06:08
DX: L08.89 Other specified local infections of the skin and subcutaneous tissue (principal); S60.511A Abrasion of right hand, initial encounter; E11.9 Type 2 diabetes mellitus without complications; I25.10 Atherosclerotic heart disease of native coronary artery without angina pectoris; Z79.01 Long term (current) use of anticoagulants; Z79.4 Long term (current) use of insulin; Z79.899 Other long term (current) drug therapy; Z88.1 Allergy status to other antibiotic agents; Z86.718 Personal history of other venous thrombosis and embolism; Z88.2 Allergy status to sulfonamides; W55.01XA Bitten by cat, initial encounter; Y93.89 Activity, other specified; Y92.89 Other specified places as the place of occurrence of the external cause; Y99.8 Other external cause status

== ENCOUNTER → 2021-01-16 | Outpatient (CLI) | payer MEDICARE ==
[~2021-01-16] MED LIST changes: +CLIN-141 PO
== END | disposition home or self-care (01) ==
LOC: SHCH 08:57
PROVIDERS: ATTEND Internal Medicine Cardiovascular Disease
DX: I10 Essential (primary) hypertension (principal); E78.5 Hyperlipidemia, unspecified; E11.9 Type 2 diabetes mellitus without complications; R55 Syncope and collapse
CPT/HCPCS: 93306; 93356

== ENCOUNTER 2021-04-11 05:50 | Day surgery (SDC) | payer MEDICARE ==
[2021-04-09 11:16] LABS: APPEARANCE,URINE CLEAR (CLEAR); BILIRUBIN,URINE NEGATIVE (NEGATIVE); COLOR,URINE YELLOW (YELLOW); GLUCOSE, URINE (UA) >=1000 mg/dL (NEGATIVE); KETONES,URINE NEGATIVE (NEGATIVE); LEUKOCYTE ESTERASE ,URINE NEGATIVE (NEGATIVE); NITRATE,URINE NEGATIVE (NEGATIVE); OCCULT BLOOD,URINE TRACE-INTACT (NEGATIVE); PROTEIN,URINE NEGATIVE (NEGATIVE); UROBILINOGEN,URINE 0.2 mg/dL (0.2-1.0)
[2021-04-09 11:16] LABS: BASOPHILS % (AUTO) 0.7 % (0.0-5.0); EOSINOPHILS % (AUTO) 4.4 % (0.0-8.0); HEMATOCRIT 40.5 % (42-54); LYMPHOCYTES % (AUTO) 28.1 % (21.0-51.0); MEAN CORPUSCULAR HGB CONC 32.6 g/dL (32.0-36.0); MEAN CORPUSCULAR VOLUME 82.8 fL (79-99); MONOCYTES % (AUTO) 7.2 % (3.0-13.0); NEUTROPHILS % (AUTO) 58.8 % (40.0-77.0); PLATELET COUNT (AUTO) 268 K/uL (130-400); RED BLOOD CELL COUNT(AUTO) 4.89 MIL/uL (4.50-6.20); RED CELL DISTRIBUTION WIDTH 13.5 % (11.0-15.5); WHITE BLOOD COUNT (AUTO) 7.7 K/uL (4.8-10.8)
[2021-04-09 11:23] LABS: CREATININE 1.2 mg/dL (0.5-1.5); POTASSIUM 4.5 mmol/L (3.5-5.1)
[2021-04-09 11:25] LABS: BACTERIA,URINE None Seen /HPF (None Seen); RBC,URINE 0-1 /HPF (0-1); WBC,URINE 0-1 /HPF (0-1)
[2021-04-09 12:04] LABS: PROTHROMBIN TIME 10.9 SEC (9.6-11.6)
[2021-04-09 12:06] LABS: PARTIAL THROMBOPLASTIN TIME 28.4 SEC (26.3-35.5)
[2021-04-10 11:40] VITALS: BP 160/90
[~2021-04-11] VITALS: Ht 188 cm; Wt 151.5 kg
[2021-04-11] VITALS (12 sets, daily range): BP systolic 133–166; BP diastolic 71–87
[~2021-04-11 05:50] MED LIST changes: +0.9% NACL 500ML IV.SOLN 500 ML IV SCH; -CLIN-141 PO; +DAPA10TA PO; -DAPA5TAB PO; +DiphenhydrAMINE HCL 50 MG/ML VIAL IVP SCH; +FOLI0.8T22 PO; -ICOS1CAP PO; -INSLAN SQ; -INSU100C6 SQ; +INSU500I SQ; +LOSA100T58 PO; +METO-391 PO; +SEMA1PEN3 SQ; +SOLU-MEDROL 125MG VIAL IVP SCH
[2021-04-11] MEDS ORDERED: 0.9%NACL 1000ML 1,000 ML IV ONE (06:14)
[2021-04-11] MEDS ORDERED: IOHEXOL 350 MG/ML 100ML INFUS..BTL IV ONE (07:06)
[2021-04-11] MEDS ORDERED: HEPARIN 10,000 UNIT/10ML (1,000 UNIT/ML) VIAL ONE (07:06)
[2021-04-11] MEDS ORDERED: IOHEXOL-350 50ML VIAL IV ONE (07:06)
[2021-04-11] MEDS ORDERED: SODIUM BICARB 50MEQ 50ML VIAL 50 ML ONE (07:06)
[2021-04-11] MEDS ORDERED: BIVALIRUDIN 250 MG/VIAL IV ONE (07:06)
[2021-04-11] MEDS ORDERED: NITROGLYCERIN 50MG VIAL ONE (07:06)
[2021-04-11] MEDS ORDERED: LIDOCAINE HCL 400MG/20ML VIAL ONE (07:07)
[2021-04-11] MEDS ORDERED: MIDAZOLAM HCL 1 MG/ML 2ML VIAL ONE (07:07)
[2021-04-11] MEDS ORDERED: FENTANYL CITRATE PF 50 MCG/1 ML 2ML VIAL ONE (07:07)
[2021-04-11] MEDS ORDERED: 0.9%NACL 1000ML 1,000 ML IV SCH (08:30)
== END 2021-04-11 12:40 | disposition home or self-care (01) ==
LOC: DAH 05:50
PROVIDERS: ATTEND Internal Medicine Cardiovascular Disease
DX: R06.09 Other forms of dyspnea (principal); R07.9 Chest pain, unspecified; R00.2 Palpitations; R00.0 Tachycardia, unspecified; I20.9 Angina pectoris, unspecified; G47.33 Obstructive sleep apnea (adult) (pediatric); I11.0 Hypertensive heart disease with heart failure; I50.9 Heart failure, unspecified; E78.2 Mixed hyperlipidemia; D64.9 Anemia, unspecified; E11.42 Type 2 diabetes mellitus with diabetic polyneuropathy; E66.9 Obesity, unspecified; Z86.718 Personal history of other venous thrombosis and embolism; Z79.01 Long term (current) use of anticoagulants; Z90.49 Acquired absence of other specified parts of digestive tract; Z98.890 Other specified postprocedural states; Z87.891 Personal history of nicotine dependence; Z83.3 Family history of diabetes mellitus; Z82.5 Family history of asthma and other chronic lower respiratory diseases; Z88.8 Allergy status to other drugs, medicaments and biological substances; Z88.3 Allergy status to other anti-infective agents; Z68.42 Body mass index [BMI] 45.0-49.9, adult
CPT/HCPCS: 36415; 71045; 80048; 81001; 82948 ×2; 85025; 85610; 85730; 93005; 93460; A4215; A4216; A4221; A4222; A4223 ×3; A4606; A4663; C1760; C1894 ×3; J1200; J1644; J2930; J3490 ×3; J7030; Q9965; Q9967 ×2; 96360; 96361; 96374; 96375; J0583; J2250; J3010

== ENCOUNTER 2021-06-28 11:37 | Emergency (ER) | payer MEDICARE ==
[~2021-06-28] VITALS: Ht 190.5 cm; Wt 154.2 kg
[~2021-06-28 11:37] MED LIST changes: -0.9% NACL 500ML IV.SOLN 500 ML IV SCH; -DiphenhydrAMINE HCL 50 MG/ML VIAL IVP SCH; -SOLU-MEDROL 125MG VIAL IVP SCH
[2021-06-28] MEDS ORDERED: HYDROCODONE/ACETAMINOPHEN 5/325 MG TAB PO ONE (12:30)
[2021-06-28] MEDS ORDERED: ACET-2247 PO (12:36)
[2021-06-28 12:47] VITALS: BP 128/77
== END 2021-06-28 12:45 | disposition home or self-care (01) ==
LOC: EDH 11:37
DX: S93.601A Unspecified sprain of right foot, initial encounter (principal); E10.40 Type 1 diabetes mellitus with diabetic neuropathy, unspecified; M25.571 Pain in right ankle and joints of right foot; I25.10 Atherosclerotic heart disease of native coronary artery without angina pectoris; I10 Essential (primary) hypertension; X58.XXXA Exposure to other specified factors, initial encounter; Y93.89 Activity, other specified; Y92.89 Other specified places as the place of occurrence of the external cause; Y99.8 Other external cause status
CPT/HCPCS: 73610; 73630

== ENCOUNTER 2022-02-05 15:25 | Emergency (ER) | payer MEDICARE ==
[~2022-02-05] VITALS: Ht 188 cm; Wt 151.5 kg
[~2022-02-05 15:25] MED LIST changes: +ACET-2247 PO
[2022-02-05 17:37] VITALS: BP 134/86
== END 2022-02-05 18:58 | disposition home or self-care (01) ==
LOC: EDH 15:25
DX: M79.89 Other specified soft tissue disorders (principal); E10.9 Type 1 diabetes mellitus without complications; I10 Essential (primary) hypertension; I25.10 Atherosclerotic heart disease of native coronary artery without angina pectoris; Z90.49 Acquired absence of other specified parts of digestive tract; Z98.890 Other specified postprocedural states; Z88.1 Allergy status to other antibiotic agents; Z88.2 Allergy status to sulfonamides; Z79.4 Long term (current) use of insulin; Z86.718 Personal history of other venous thrombosis and embolism
CPT/HCPCS: 93971

== ENCOUNTER 2022-10-23 18:07 | Emergency (ER) | payer MEDICARE ==
[~2022-10-23] VITALS: Ht 190.5 cm; Wt 152.0 kg
[~2022-10-23 18:07] MED LIST changes: +ALBUHFA IH; +AMLO-257 PO; +FEXO-263 PO; -GABA300S PO; +GABA300S3 PO; -LOSA100T58 PO; +LOSA100T59 PO; +MONT-39 PO; -ROSU20TA31 PO; +ROSU20TA73 PO; -SEMA1PEN3 SQ; -SITA1TAB6 PO
[2022-10-23 19:53] VITALS: BP 142/78; PULSE 88; RESP 18; O2SAT 99
== END 2022-10-23 19:55 | disposition home or self-care (01) ==
LOC: EDH 18:07
DX: T82.9XXA Unspecified complication of cardiac and vascular prosthetic device, implant and graft, initial encounter (principal)
CPT/HCPCS: 76882

== ENCOUNTER 2022-12-23 13:20 | Emergency (ER) | payer MEDICARE ==
[~2022-12-23] VITALS: Ht 188 cm; Wt 151.0 kg
[~2022-12-23 13:20] MED LIST changes: -EZET10TA13 PO; +EZET10TA81 PO
[2022-12-23 13:36] VITALS: BP 168/93
[2022-12-23 14:55] VITALS: PULSE 110; RESP 18; O2SAT 100
[2022-12-23 14:57] LABS: BASOPHILS # (AUTO) 0.06 K/uL (0.00-0.20); BASOPHILS % (AUTO) 0.4 % (0.0-5.0); EOSINOPHILS # (AUTO) 0.43 K/uL (0.00-0.70); EOSINOPHILS % (AUTO) 3.2 % (0.0-8.0); HEMATOCRIT 34.5 % (42-54); IMMATURE GRANULOCYTE ABSOLUTE 0.17 K/uL (0-1); LYMPHOCYTES # (AUTO) 1.7 K/uL (1.0-4.8); LYMPHOCYTES % (AUTO) 12.7 % (21.0-51.0); MEAN CORPUSCULAR HEMOGLOBIN 26.6 pg (27.0-33.0); MEAN CORPUSCULAR HGB CONC 31.9 g/dL (32.0-36.0); MEAN CORPUSCULAR VOLUME 83.5 fL (79-99); MONOCYTES # (AUTO) 1.2 K/uL (0.1-1.0); MONOCYTES % (AUTO) 8.6 % (3.0-13.0); NEUTROPHILS % (AUTO) 73.8 % (40.0-77.0); PLATELET COUNT (AUTO) 428 K/uL (130-400); RED BLOOD CELL COUNT(AUTO) 4.13 MIL/uL (4.50-6.20); RED CELL DISTRIBUTION WIDTH 13.3 % (11.0-15.5); WHITE BLOOD COUNT (AUTO) 13.6 K/uL (4.8-10.8)
[2022-12-23 15:18] LABS: CREATININE 1.4 mg/dL (0.5-1.5); POTASSIUM 3.9 mmol/L (3.5-5.1)
[2022-12-23 15:23] LABS: ALBUMIN 2.9 g/dL (3.5-5.0); BILIRUBIN,TOTAL 0.4 mg/dL (0.2-1.0); TOTAL PROTEIN, SERUM 8.4 g/dL (6.0-8.3)
[2022-12-23] MEDS ORDERED: DOXY100T21 PO (15:31)
== END 2022-12-23 15:50 | disposition home or self-care (01) ==
LOC: EDH 13:20
DX: E11.621 Type 2 diabetes mellitus with foot ulcer (principal); L97.519 Non-pressure chronic ulcer of other part of right foot with unspecified severity; E66.9 Obesity, unspecified; G62.9 Polyneuropathy, unspecified; E78.00 Pure hypercholesterolemia, unspecified; I12.9 Hypertensive chronic kidney disease with stage 1 through stage 4 chronic kidney disease, or unspecified chronic kidney disease; E11.22 Type 2 diabetes mellitus with diabetic chronic kidney disease; N18.9 Chronic kidney disease, unspecified; F17.200 Nicotine dependence, unspecified, uncomplicated; Z79.01 Long term (current) use of anticoagulants; Z68.41 Body mass index [BMI] 40.0-44.9, adult; Z79.899 Other long term (current) drug therapy; Z88.1 Allergy status to other antibiotic agents; Z88.2 Allergy status to sulfonamides; Z88.8 Allergy status to other drugs, medicaments and biological substances; Z90.49 Acquired absence of other specified parts of digestive tract; Z91.041 Radiographic dye allergy status
CPT/HCPCS: 36415; 80053; 85025; 85378; 93971

== ENCOUNTER 2023-01-03 13:12 | Emergency (ER) | payer MEDICARE ==
[~2023-01-03] VITALS: Ht 188 cm; Wt 151.0 kg
[~2023-01-03 13:12] MED LIST changes: +DOXY100T21 PO
[2023-01-03] MEDS ORDERED: ACETAMINOPHEN 500 MG TABLET PO ONE (15:30)
[2023-01-03 15:33] LABS: BASOPHILS # (AUTO) 0.04 K/uL (0.00-0.20); BASOPHILS % (AUTO) 0.3 % (0.0-5.0); EOSINOPHILS # (AUTO) 0.09 K/uL (0.00-0.70); EOSINOPHILS % (AUTO) 0.6 % (0.0-8.0); HEMATOCRIT 32.8 % (42-54); IMMATURE GRANULOCYTE ABSOLUTE 0.13 K/uL (0-1); LYMPHOCYTES # (AUTO) 1.5 K/uL (1.0-4.8); LYMPHOCYTES % (AUTO) 10.5 % (21.0-51.0); MEAN CORPUSCULAR HEMOGLOBIN 26.1 pg (27.0-33.0); MEAN CORPUSCULAR HGB CONC 31.4 g/dL (32.0-36.0); MEAN CORPUSCULAR VOLUME 83.2 fL (79-99); MONOCYTES # (AUTO) 1.3 K/uL (0.1-1.0); MONOCYTES % (AUTO) 8.7 % (3.0-13.0); NEUTROPHILS # (AUTO) 11.4 K/uL (1.8-7.7); PLATELET COUNT (AUTO) 441 K/uL (130-400); RED BLOOD CELL COUNT(AUTO) 3.94 MIL/uL (4.50-6.20); RED CELL DISTRIBUTION WIDTH 13.7 % (11.0-15.5); WHITE BLOOD COUNT (AUTO) 14.4 K/uL (4.8-10.8)
[2023-01-03 15:39] LABS: APPEARANCE,URINE CLEAR (CLEAR); BILIRUBIN,URINE NEGATIVE (NEGATIVE); COLOR,URINE YELLOW (YELLOW); GLUCOSE, URINE (UA) 300 mg/dL (NEGATIVE); KETONES,URINE NEGATIVE (NEGATIVE); LEUKOCYTE ESTERASE ,URINE NEGATIVE Leu/uL (NEGATIVE); NITRATE,URINE NEGATIVE (NEGATIVE); PH,URINE 5.5 (5.0-8.0); PROTEIN,URINE 50 mg/dL (NEGATIVE); UROBILINOGEN,URINE 0.2 mg/dL (0.2-1.0)
[2023-01-03 15:41] LABS: ADD UA MICROSCOPIC YES
[2023-01-03 15:42] LABS: MUCUS,URINE RARE LPF (None Seen); RBC,URINE 0-1 /HPF (0-1); SQUAMOUS EPITHELIAL CELL,UR RARE /HPF (0-2); WBC,URINE 0-1 /HPF (0-1)
[2023-01-03 15:45] LABS: CREATININE 1.4 mg/dL (0.5-1.5)
[2023-01-03 15:49] LABS: ALBUMIN 2.9 g/dL (3.5-5.0); BILIRUBIN,TOTAL 0.5 mg/dL (0.2-1.0); TOTAL PROTEIN, SERUM 8.5 g/dL (6.0-8.3)
[2023-01-03] MEDS ORDERED: ONDANSETRON 4MG INJ IVP ONE ×2 (16:00→21:30)
[2023-01-03] MEDS ORDERED: 0.9% NACL 500ML IV.SOLN 500 ML IV SCH (16:00)
[2023-01-03] MEDS ORDERED: MORPHINE 4 MG SYG IVP ONE (16:00)
[2023-01-03 18:59] LABS: SARS-CoV-2, RNA, NAAT NEGATIVE SARS CoV-2 (NEGATIVE)
[2023-01-03 19:04] LABS: INFLUENZA TYPE A Negative For Type A (NEGATIVE); INFLUENZA TYPE B Negative For Type B (NEGATIVE)
[2023-01-03 19:12] VITALS: TEMP 98.5
[2023-01-03 21:52] VITALS: BP 139/67; PULSE 97; RESP 16; O2SAT 98
[2023-01-03] MEDS ORDERED: ONDA-104 PO (22:01)
[2023-01-03] MEDS ORDERED: DICY20TA2 PO (22:01)
== END 2023-01-03 22:15 | disposition home or self-care (01) ==
LOC: EDH 13:12
DX: K52.9 Noninfective gastroenteritis and colitis, unspecified (principal); J44.9 Chronic obstructive pulmonary disease, unspecified; I12.9 Hypertensive chronic kidney disease with stage 1 through stage 4 chronic kidney disease, or unspecified chronic kidney disease; E11.22 Type 2 diabetes mellitus with diabetic chronic kidney disease; N18.9 Chronic kidney disease, unspecified; Z79.01 Long term (current) use of anticoagulants; Z79.899 Other long term (current) drug therapy; Z88.1 Allergy status to other antibiotic agents; Z88.2 Allergy status to sulfonamides; Z88.8 Allergy status to other drugs, medicaments and biological substances; Z90.49 Acquired absence of other specified parts of digestive tract; Z91.041 Radiographic dye allergy status; Z20.822 Contact with and (suspected) exposure to COVID-19
CPT/HCPCS: 99285; 74176; 96374; 71045; 87635; 96375; 80053; 83690; 85025; 87804 ×2; 83605; 81001; 36415; 96376; 93005; C9803; J2405; J2270

== ENCOUNTER → 2023-05-08 | Outpatient (CLI) | payer MEDICARE ==
[~2023-05-08] MED LIST changes: -ACET-2247 PO; -ALBUHFA IH; -APIX5TAB PO; -DAPA10TA PO; -DOXY100T21 PO; +EZET10TA48 PO; -EZET10TA81 PO; +FLUT16H EN; -FOLI0.8T22 PO; -GABA300S3 PO; +GABA300T25 PO; -INSU500I SQ; -LOSA100T59 PO; +LOSA50TA64 PO; -METO-391 PO; +METO-409 PO; +METO5TAB2 PO; +PANT40TA54 PO; -ROSU20TA73 PO; +SEMA2PEN SQ
[2023-05-08 12:24] LABS: BASOPHILS # (AUTO) 0.05 K/uL (0.00-0.20); BASOPHILS % (AUTO) 0.7 % (0.0-5.0); EOSINOPHILS % (AUTO) 3.9 % (0.0-8.0); HEMATOCRIT 43.5 % (42-54); IMMATURE GRANULOCYTE ABSOLUTE 0.03 K/uL (0-1); LYMPHOCYTES # (AUTO) 2.5 K/uL (1.0-4.8); LYMPHOCYTES % (AUTO) 32.8 % (21.0-51.0); MEAN CORPUSCULAR HEMOGLOBIN 27.4 pg (27.0-33.0); MEAN CORPUSCULAR HGB CONC 31.7 g/dL (32.0-36.0); MEAN CORPUSCULAR VOLUME 86.3 fL (79-99); MONOCYTES # (AUTO) 0.5 K/uL (0.1-1.0); MONOCYTES % (AUTO) 6.8 % (3.0-13.0); NEUTROPHILS # (AUTO) 4.2 K/uL (1.8-7.7); NEUTROPHILS % (AUTO) 55.4 % (40.0-77.0); PLATELET COUNT (AUTO) 290 K/uL (130-400); RED BLOOD CELL COUNT(AUTO) 5.04 MIL/uL (4.50-6.20); RED CELL DISTRIBUTION WIDTH 15.9 % (11.0-15.5); WHITE BLOOD COUNT (AUTO) 7.6 K/uL (4.8-10.8)
[2023-05-08 12:46] LABS: ALBUMIN 3.7 g/dL (3.5-5.0); BILIRUBIN,TOTAL 0.4 mg/dL (0.2-1.0); MAGNESIUM 1.6 mg/dL (1.80-2.40); POTASSIUM 4.5 mmol/L (3.5-5.1); TOTAL PROTEIN, SERUM 7.9 g/dL (6.0-8.3)
== END | disposition home or self-care (01) ==
LOC: LAB 08:21
PROVIDERS: ATTEND Internal Medicine Cardiovascular Disease
DX: E11.59 Type 2 diabetes mellitus with other circulatory complications (principal); I73.9 Peripheral vascular disease, unspecified; R60.9 Edema, unspecified
CPT/HCPCS: 36415; 80053; 80061; 83735; 85025

== ENCOUNTER 2023-10-15 14:07 | Emergency (ER) | payer OTHER, MEDICARE ==
[~2023-10-15] VITALS: Ht 188 cm; Wt 142.9 kg
[2023-10-15 14:57] LABS: BASOPHILS # (AUTO) 0.05 K/uL (0.00-0.20); BASOPHILS % (AUTO) 0.5 % (0.0-5.0); EOSINOPHILS # (AUTO) 0.37 K/uL (0.00-0.70); EOSINOPHILS % (AUTO) 3.6 % (0.0-8.0); LYMPHOCYTES # (AUTO) 2.3 K/uL (1.0-4.8); LYMPHOCYTES % (AUTO) 22.2 % (21.0-51.0); MEAN CORPUSCULAR HEMOGLOBIN 28.4 pg (27.0-33.0); MEAN CORPUSCULAR VOLUME 83.5 fL (79-99); MONOCYTES # (AUTO) 0.7 K/uL (0.1-1.0); MONOCYTES % (AUTO) 7.2 % (3.0-13.0); NEUTROPHILS # (AUTO) 6.7 K/uL (1.8-7.7); NEUTROPHILS % (AUTO) 65.5 % (40.0-77.0); PLATELET COUNT (AUTO) 280 K/uL (130-400); RED BLOOD CELL COUNT(AUTO) 4.79 MIL/uL (4.50-6.20); RED CELL DISTRIBUTION WIDTH 12.9 % (11.0-15.5); WHITE BLOOD COUNT (AUTO) 10.3 K/uL (4.8-10.8)
[2023-10-15 15:11] LABS: CREATININE 1.3 mg/dL (0.5-1.3); POTASSIUM 3.7 mmol/L (3.5-5.1)
[2023-10-15 17:50] VITALS: BP 155/85; PULSE 84; RESP 18; TEMP 98.4; O2SAT 99
== END 2023-10-15 17:52 | disposition home or self-care (01) ==
LOC: EDH 14:07
DX: L97.529 Non-pressure chronic ulcer of other part of left foot with unspecified severity (principal); J44.9 Chronic obstructive pulmonary disease, unspecified; E11.9 Type 2 diabetes mellitus without complications; I11.0 Hypertensive heart disease with heart failure; I50.9 Heart failure, unspecified; F17.200 Nicotine dependence, unspecified, uncomplicated; Z88.1 Allergy status to other antibiotic agents; Z91.041 Radiographic dye allergy status; Z88.2 Allergy status to sulfonamides; Z88.8 Allergy status to other drugs, medicaments and biological substances; Z79.899 Other long term (current) drug therapy; Z90.49 Acquired absence of other specified parts of digestive tract; Z86.16 Personal history of COVID-19
CPT/HCPCS: 36415; 73630; 80048; 83605; 85025; 87040

== ENCOUNTER 2024-02-24 20:40 | Emergency (ER) | payer OTHER, MEDICARE ==
[~2024-02-24] VITALS: Ht 188 cm; Wt 152.0 kg
[2024-02-24 21:39] LABS: BASOPHILS # (AUTO) 0.06 K/uL (0.00-0.20); BASOPHILS % (AUTO) 0.6 % (0.0-5.0); EOSINOPHILS % (AUTO) 7.5 % (0.0-8.0); HEMATOCRIT 41.4 % (42-54); IMMATURE GRANULOCYTE ABSOLUTE 0.14 K/uL (0-1); LYMPHOCYTES # (AUTO) 3.1 K/uL (1.0-4.8); LYMPHOCYTES % (AUTO) 28.5 % (21.0-51.0); MEAN CORPUSCULAR HEMOGLOBIN 28.3 pg (27.0-33.0); MEAN CORPUSCULAR HGB CONC 33.3 g/dL (32.0-36.0); MEAN CORPUSCULAR VOLUME 84.8 fL (79-99); MONOCYTES # (AUTO) 0.9 K/uL (0.1-1.0); MONOCYTES % (AUTO) 8.3 % (3.0-13.0); NEUTROPHILS # (AUTO) 5.8 K/uL (1.8-7.7); NEUTROPHILS % (AUTO) 53.8 % (40.0-77.0); PLATELET COUNT (AUTO) 273 K/uL (130-400); RED BLOOD CELL COUNT(AUTO) 4.88 MIL/uL (4.50-6.20); RED CELL DISTRIBUTION WIDTH 13.4 % (11.0-15.5); WHITE BLOOD COUNT (AUTO) 10.7 K/uL (4.8-10.8)
--- NOTE | 2024-02-24 21:39 | ERN ---
ED Note History of Present Illness Stated Complaint: RASH Chief Complaint: Skin Rash/Abscess Time Seen by MD: 20:41 Time Seen by Midlevel: 20:38 Dictation: 43-year-old male with a history of diabetes and hypertension coming in complaining of a generalized by a rash on and off for one year. Patient states it usually takes Benadryl and it goes away but this time he took Benadryl and has not gotten better. Denies any recent illness, denies any fever, cough, congestion, throat pain. Denies any shortness a breath. Allergies: Coded Allergies: doxycycline (Unverified Allergy, Intermediate, HIVES, 02/04/23) iodine (Unverified Allergy, Unknown, 04/10/21) sulfamethoxazole (Unverified Allergy, Unknown, 09/07/17) trimethoprim (Unverified Allergy, Unknown, 09/07/17) Uncoded Allergies: lactose intolerant (Adverse Reaction, Intermediate, 02/09/23) Home Meds Reported Medications Ezetimibe (Ezetimibe) 10 Mg Tablet, 1 TAB PO HS 02/17/23 Fluticasone Propionate (Flonase Nasal Lafontaine) 50 Mcg/Actuation Lafontaine, 1 SPRY EN DAILY 02/17/23 Metoprolol Succinate (Metoprolol Succinate) 100 Mg Tab.er.24h, 1 TAB PO DAILY 02/17/23 Semaglutide (Ozempic) 2 Mg/0.75 Ml (8 Mg/3 Ml) Pen.injctr, 2 MG SQ QWEEK 02/17/23 Gabapentin (Gralise) 300 Mg Tab.er.24h, 1 CAP PO TID 02/17/23 Pantoprazole Sodium (Pantoprazole Sodium) 40 Mg Tablet.dr, 1 TAB PO DAILY 02/17/23 Metoclopramide HCl (Metoclopramide HCl) 5 Mg Tablet, 1 TAB PO TID 02/17/23 Losartan Potassium (Losartan Potassium) 50 Mg Tablet, 1 TAB PO DAILY 02/17/23 Fexofenadine HCl (Fexofenadine HCl) 180 Mg Tablet, 180 MG PO DAILY PRN for allergy, TAB 10/11/22 Amlodipine Besylate (Amlodipine Besylate) 5 Mg Tablet, 5 MG PO DAILY, TAB 10/11/22 Montelukast Sodium (Montelukast Sodium) 10 Mg Tablet, 10 MG PO DAILY, TAB 10/11/22 Hydrochlorothiazide (Hydrochlorothiazide) 25 Mg Tablet, 25 MG PO DAILY, TAB 10/20/19 Past Medical History Past Medical History: Diabetes-Type II, High Cholesterol, Heart Disease, Hypertension, Renal Disese Additional Past Medical Hx: COVID, CARDIOMEGALY AT Surgical History: Other Surgical History Other: RT BLK Family History: Negative Social History: Smokers, Drugs, ETOH Review of System Dictation Constitutional: Negative for fever,chills, and weight loss Eyes: Negative for injury, pain,redness, and discharge ENT: Negative for injury,pain or swelling Cardiovascular: Negative for chest pain, palpitations, and edema Respiratory: Negative for shortness of breath, cough, and wheezing, Abdomen/GI: Negative for abdominal pain, nausea, vomiting, diarrhea, and constipation Back: Negative for injury and pain : Negative for injury, bleeding and discharge MS/Extremity: Negative for injury and deformity Skin: Positive for rash, no discoloration Neuro: Negative for headache, weakness, numbness, tingling, and seizure Psych: Negative for suicide ideation, homicidal ideation, and hallucinations Review of Systems: was completed Initial Vital Sign VS Vital Signs Date Time Temp Pulse Resp B/P (MAP) Pulse Ox O2 Delivery O2 Flow Rate FiO2 02/24/24 20:53 98.1 89 20 145/98 94 Room Air 02/24/24 23:35 0 21 Physical Exam Dictation General: awake, alert, NAD Head/Face: Normocephalic, atraumatic Eyes: PERRL, EOMI, vision at baseline ENT: oral cavity clear, TMs clear, no signs of infection Neck: Trachea midline, supple, no nuchal rigidity Cardiovascular: RRR, normal S1/S2, No MRGs, no JVD Respiratory: CTAB, no respiratory distress, No rales or wheezes Abdomen: Soft, non-tender, non-distended, normal bowel sounds, no guarding or rebound. Skin: Warm, dry, normal turgor, generalized rash, itching. MS/Extremity: Pulses equal, no cyanosis, neurovascular intact, FROM Neuro: COAx4, GCS 15, strength 5/5, CN 2-12 intact, normal cerebellar exam, normal gait, Psych: Normal behavior, mood, and affect normal Results (Laboratory/Radiology) Laboratory/Radiology Laboratory Tests Test 02/24/24 21:30 White Blood Count 10.7 K/uL (4.8-10.8) Red Blood Count 4.88 MIL/uL (4.50-6.20) Hemoglobin 13.8 g/dL (14.0-18.0) L Hematocrit 41.4 % (42-54) L Mean Corpuscular Volume 84.8 fL (79-99) Mean Corpuscular Hemoglobin 28.3 pg (27.0-33.0) Mean Corpuscular Hemoglobin Concent 33.3 g/dL (32.0-36.0) Red Cell Distribution Width 13.4 % (11.0-15.5) Platelet Count 273 K/uL (130-400) Mean Platelet Volume 10.8 fL (7.5-10.5) H Immature Granulocyte % (Auto) 1.3 % (0-1) H Neutrophils (%) (Auto) 53.8 % (40.0-77.0) Lymphocytes (%) (Auto) 28.5 % (21.0-51.0) Monocytes (%) (Auto) 8.3 % (3.0-13.0) Eosinophils (%) (Auto) 7.5 % (0.0-8.0) Basophils (%) (Auto) 0.6 % (0.0-5.0) Neutrophils # (Auto) 5.8 K/uL (1.8-7.7) Lymphocytes # (Auto) 3.1 K/uL (1.0-4.8) Monocytes # (Auto) 0.9 K/uL (0.1-1.0) Eosinophils # (Auto) 0.80 K/uL (0.00-0.70) H Basophils # (Auto) 0.06 K/uL (0.00-0.20) Absolute Immature Granulocyte (auto 0.14 K/uL (0-1) Nucleated Red Blood Cells 0.0 % (0.0-0.19) Sodium Level 146 mmol/L (136-145) H Potassium Level 3.9 mmol/L (3.5-5.1) Chloride Level 108 mmol/L (101-111) Carbon Dioxide Level 31 mmol/L (21-32) Blood Urea Nitrogen 19 mg/dL (7-18) H Creatinine 1.2 mg/dL (0.5-1.3) Glomerular Filtration Rate Calc 78 mL/min (>90) Random Glucose 115 mg/dL (70-105) H Total Calcium 9.1 mg/dL (8.5-10.1) Total Bilirubin 0.4 mg/dL (0.2-1.0) Direct Bilirubin 0.1 mg/dL (0.0-0.3) Aspartate Amino Transf (AST/SGOT) 20 U/L (10-37) Alanine Aminotransferase (ALT/SGPT) 28 U/L (12-78) Alkaline Phosphatase 82 U/L (50-136) Total Protein 7.4 g/dL (6.0-8.3) Albumin 3.4 g/dL (3.5-5.0) L ED Course ED Course Orders Procedure Category Date Status Time Cbc With Differential LAB 02/24/24 Complete 21:19 Basic Metabolic Panel LAB 02/24/24 Complete 21:19 Hepatic Function Panel LAB 02/24/24 Complete 21:19 Diphenhydramine Hcl PHA 02/24/24 Complete (Benadryl Inj) 21:19 Famotidine 20mg Vial PHA 02/24/24 Complete (Pepcid 20mg Vial) 21:19 Methylprednisolone PHA 02/24/24 Complete Succ 125mg (Solu-Medr 21:19 0.9%Nacl 1000ml (Ns PHA 02/24/24 Complete 1000ml) 21:19 Current Medications Medications (Trade) Dose Ordered Sig/Nadine Route PRN Reason Start Time Stop Time Status Last Admin Dose Admin Diphenhydramine HCl (BENAdryl INJ) 50 mg ONCE STAT IV 02/24/24 21:19 02/24/24 21:22 DC 02/24/24 22:27 Famotidine (Pepcid 20mg Vial) 20 mg ONCE STAT IV 02/24/24 21:19 02/24/24 21:22 DC 02/24/24 22:27 Methylprednisolone Sodium Succinate (Solu-medROL 125MG) 125 mg ONCE STAT IVP 02/24/24 21:19 02/24/24 21:22 DC 02/24/24 22:27 Sodium Chloride 1,000 ml @ 1,000 mls/hr Q1H STAT IV 02/24/24 21:19 02/24/24 22:18 DC 02/24/24 22:27 Vital Signs Date Time Temp Pulse Resp B/P (MAP) Pulse Ox O2 Delivery O2 Flow Rate FiO2 02/24/24 23:35 98.2 85 18 139/87 96 Room Air* 0 21 02/24/24 20:53 98.1 89 20 145/98 94 Room Air Medical Decision Making MDM MDM: Differential diagnosis: Dermatitis, allergic reaction, hives, scabies Rationale: Tests considered and ordered secondary to shared decision making include: Previous outside records reviewed: Old ER visits. Risk of complication and/or morbidity or mortality of patient management: None Medications-Per medication reconciliation Need for hospitalization: Patient does not meet criteria for hospitalization. Need for emergency major/minor surgery: No There are no social concerns with this patient. Prescription drug management Prescriptions will include symptomatic care Patient's prior external medical records from other ER visits were reviewed by me as indicated. Prior testing and results from previous visits were reviewed. Prior tests were taken into account with medical decision making and resource utilization, independent historian/historians were used to obtain complete medical history. I independently interpreted the test that were performed, results were reviewed by me and considered findings on radiology if ordered. Medical management and examination interpretation discussions were had by me with other qualified healthcare professionals as indicated for the patient's care. DX & DISP Disposition: Discharge Departure Impression: Primary Impression: Allergic reaction Condition: Stable Additional Instructions: Your blood work today is unremarkable. Your kidney function is normal. Liver function tests and bilirubin is normal. Given that this rash has been intermittent for over a year now you will need to see a functional tester outpatient. I have given you a referral. Follow up with your primary care doctor in 2-3 days for repeat evaluation. Return to the ER for any new or worsening symptoms Referrals: MOISES MEDINA (PCP) VIV SHARP MD Time of Disposition: 22:44 I have reviewed the case, and I agree with, Diagnosis and Plan I performed the substantive portion of the visit. I have reviewed and person ally made and approve the management plan that is documented in the note by myself or the REJI. I acknowledge for responsibility for the patient's management plan. DANG BENNETT NP Feb 24, 2024 21:39 MARILYN WILLIS Feb 24, 2024 22:45
[2024-02-24 21:52] LABS: CREATININE 1.2 mg/dL (0.5-1.3); POTASSIUM 3.9 mmol/L (3.5-5.1)
[2024-02-24 21:56] LABS: ALBUMIN 3.4 g/dL (3.5-5.0); BILIRUBIN,DIRECT 0.1 mg/dL (0.0-0.3); BILIRUBIN,TOTAL 0.4 mg/dL (0.2-1.0); TOTAL PROTEIN, SERUM 7.4 g/dL (6.0-8.3)
[2024-02-24] MEDS: 0.9%NACL 1000ML 1,000 ML IV STA (22:27)
[2024-02-24] MEDS: Solu-medROL 125MG VIAL IVP STA (22:27)
[2024-02-24] MEDS: FAMOTIDINE 20MG VIAL IV STA (22:27)
[2024-02-24] MEDS: DiphenhydrAMINE HCL 50 MG/ML VIAL IV STA (22:27)
--- NOTE | 2024-02-24 23:01 | NUR ---
PT REQUESTED TO FINISH FLUIDS BEFORE D/C, AWARE
[2024-02-24 23:35] VITALS: BP 139/87; PULSE 85; RESP 18; TEMP 98.3; O2SAT 96
== END 2024-02-24 23:36 | disposition home or self-care (01) ==
LOC: EDH 20:40
DX: T78.40XA Allergy, unspecified, initial encounter (principal); E11.9 Type 2 diabetes mellitus without complications; E78.00 Pure hypercholesterolemia, unspecified; F17.200 Nicotine dependence, unspecified, uncomplicated; I10 Essential (primary) hypertension; Z79.85 Long-term (current) use of injectable non-insulin antidiabetic drugs; Z79.899 Other long term (current) drug therapy; Z88.1 Allergy status to other antibiotic agents; Z88.2 Allergy status to sulfonamides; Z88.8 Allergy status to other drugs, medicaments and biological substances; Z91.041 Radiographic dye allergy status; X58.XXXA Exposure to other specified factors, initial encounter
CPT/HCPCS: 99284; 96374; 96375; 80076; 80048; 85025; 36415; J2919; J1200; J3490; J7030

== ENCOUNTER → 2024-03-07 | Outpatient (CLI) | payer OTHER, MEDICARE ==
[2024-03-07 12:54] LABS: ALBUMIN 3.4 g/dL (3.5-5.0); BILIRUBIN,TOTAL 0.6 mg/dL (0.2-1.0); CREATININE 1.2 mg/dL (0.5-1.3); POTASSIUM 4.2 mmol/L (3.5-5.1); TOTAL PROTEIN, SERUM 7.3 g/dL (6.0-8.3)
== END | disposition home or self-care (01) ==
LOC: LAB 09:02
PROVIDERS: ATTEND Internal Medicine Cardiovascular Disease
DX: I10 Essential (primary) hypertension (principal); R60.9 Edema, unspecified
CPT/HCPCS: 36415; 80053; 80061